=== PATIENT | female | born 1945 | race African-American/Black ===

== ENCOUNTER → 2017-04-08 | Outpatient (CLI) | payer MEDICARE, MEDICAID | LOC: MC.RAD 13:48 | DX: Z12.31 Encounter for screening mammogram for malignant neoplasm of breast (principal) ==

== ENCOUNTER 2017-12-25 15:45 | Inpatient (IN) | payer MEDICARE, MEDICAID ==
[~2017-12-25] VITALS: Ht 149.9 cm; Wt 90.3 kg
[~2017-12-25 15:45] MED LIST: HEPARIN SOD5000 U/ML SQ; PLAVIX 75MG TAB75 MG PO; ZESTRIL 5MG5 MG PO
[2017-12-25 16:03] VITALS: BP 128/58; PULSE 77; TEMP 98.2
[2017-12-25 23:37] VITALS: BP 173/89; PULSE 91
[2017-12-26 06:00] VITALS: BP 148/86; PULSE 72; TEMP 97.7
[2017-12-26 18:00] VITALS: BP 160/94; PULSE 77; TEMP 97.8
[2017-12-27 00:24] VITALS: BP 133/73; PULSE 81; TEMP 98.2
[2017-12-27 05:43] VITALS: BP 123/75; PULSE 72; TEMP 97.7
[2017-12-27 07:01] LABS: BASO # 0.1 (0.0-0.2); BASO % 0.7 % (0.0-2.0); EOS # 0.3 (0.0-0.7); GRAN # 3.4 (1.4-6.5); GRAN % 46.8 % (42.2-75.2); HEMOGLOBIN 12.1 g/dl (12.5-16.0); LYMPH # 2.8 (1.2-3.4); LYMPH % 38.2 % (20.0-51.0); MEAN CELL VOLUME 81 fl (80.0-100.0); MEAN CORPUSCULAR HEMOGLOBIN 26 pg (27.0-31.0); MEAN CORPUSCULAR HGB CONC 33 g/dl (33.0-37.0); MEAN PLATELET VOLUME 9.8 fl (7.4-10.4); MONO # 0.7 (0.1-0.6); PLATELET COUNT 242 K/mm3 (130-400); RED BLOOD COUNT 4.58 M/mm3 (4.10-5.30); REDCELL DISTRIBUTION WIDTH-CV 14.9 % (11.5-14.5)
[2017-12-27 07:09] LABS: HEMATOCRIT 36.9 % (37.0-47.0)
[2017-12-27 15:39] VITALS: BP 123/65; PULSE 80; TEMP 98.4
[2017-12-28 04:46] VITALS: BP 136/86; PULSE 74; TEMP 98.1
[2017-12-28 15:53] VITALS: BP 142/70; PULSE 75; TEMP 98.7
[2017-12-29 05:16] VITALS: BP 150/69; PULSE 74; TEMP 98.1
[2017-12-29 18:14] VITALS: BP 142/81; PULSE 88; TEMP 98.3
[2017-12-30 05:05] VITALS: BP 135/78; PULSE 74; TEMP 98.2
[2017-12-30 13:46] LABS: COLLECTION METHOD CLEAN CATCH
[2017-12-30 13:52] LABS: MUCOUS Present /lpf; PH 5 (5-8); URINE APPEARANCE Clear; URINE BACTERIA Rare /hpf; URINE BILIRUBIN Negative (NEGATIVE); URINE BLOOD Negative (NEGATIVE); URINE COLOR Yellow; URINE GLUCOSE Negative (NEGATIVE); URINE KETONE Negative (NEGATIVE); URINE LEUKOCYTE ESTERASE Negative (NEGATIVE); URINE NITRATE Negative (NEGATIVE); URINE PROTEIN(semi-quant) Negative (NEGATIVE); URINE RBC 0-2 /hpf; URINE UROBILINOGEN Negative (NEGATIVE)
[2017-12-30 15:18] VITALS: BP 140/82; PULSE 86; TEMP 97.9
[2017-12-31 06:26] VITALS: BP 152/89; PULSE 87; TEMP 97.8
[2017-12-31 16:17] VITALS: BP 149/80; PULSE 90; TEMP 98.1
[2018-01-01 06:05] VITALS: BP 125/77; PULSE 76; TEMP 98
[2018-01-01 16:12] VITALS: BP 144/82; PULSE 82; TEMP 98.4
[2018-01-02 05:11] VITALS: BP 140/77; PULSE 83; TEMP 98.5
[2018-01-02 15:44] VITALS: BP 145/63; PULSE 85; TEMP 98.3
[2018-01-03 04:23] VITALS: BP 134/88; PULSE 86; TEMP 98
[2018-01-03 15:32] VITALS: BP 155/53; PULSE 89; TEMP 97.8
[2018-01-04 05:50] VITALS: BP 133/76; PULSE 82; TEMP 98.1
[2018-01-04 15:49] VITALS: BP 148/81; PULSE 89; TEMP 97.9
[2018-01-05 06:04] VITALS: BP 136/77; PULSE 77; TEMP 98.4
[2018-01-05 15:16] VITALS: BP 130/87; PULSE 79; TEMP 98
[2018-01-06 04:40] VITALS: BP 129/71; PULSE 87; TEMP 98.4
[2018-01-06 15:43] VITALS: BP 148/84; PULSE 81; TEMP 97.7
[2018-01-07 05:17] VITALS: BP 100/60; PULSE 87; TEMP 97.4
[2018-01-07 18:09] VITALS: BP 147/75; PULSE 87; TEMP 97.9
[2018-01-08 06:00] VITALS: BP 131/81; PULSE 84; TEMP 97.7
[2018-01-08] MEDS ORDERED: NORVASC 5MG5 MG/TAB PO (07:28)
[2018-01-08] MEDS ORDERED: LIPITOR20 MG PO (07:28)
[2018-01-08] MEDS ORDERED: PLAVIX 75MG TAB75 MG PO (07:31)
== END 2018-01-08 11:05 | disposition home or self-care (01) | DRG 57 ==
PROVIDERS: Emergency Medicine
DX: I69.351 Hemiplegia and hemiparesis following cerebral infarction affecting right dominant side (principal); I69.321 Dysphasia following cerebral infarction; Z66 Do not resuscitate; I10 Essential (primary) hypertension; Z85.3 Personal history of malignant neoplasm of breast; B91 Sequelae of poliomyelitis
CPT/HCPCS: 99222-AI; 99232-AI; 99238; J1644

== ENCOUNTER 2020-12-22 00:13 | Inpatient (IN) | payer MEDICARE, MEDICAID ==
[2020-12-22] VITALS (180 sets, daily range): BP systolic 107–142; BP diastolic 63–99; PULSE 88–98; TEMP 97.5–98.6; O2SAT 93–100
[~2020-12-22] VITALS: Ht 149.9 cm; Wt 103.9 kg
[~2020-12-22 00:13] MED LIST changes: +LIPITOR20 MG PO; +NORVASC 5MG5 MG/TAB PO
[2020-12-22 02:02] LABS: BASO % 0.2 % (0.0-2.0); EOS # 0.1 (0.0-0.7); EOS % 0.7 % (0-4.0); GRAN # 11.7 (1.4-6.5); GRAN % 82.8 % (42.2-75.2); HEMATOCRIT 38.3 % (37.0-47.0); HEMOGLOBIN 12.5 g/dl (12.5-16.0); LYMPH # 1.1 (1.2-3.4); LYMPH % 7.6 % (20.0-51.0); MEAN CELL VOLUME 80 fl (80.0-100.0); MEAN CORPUSCULAR HEMOGLOBIN 26 pg (27.0-31.0); MEAN CORPUSCULAR HGB CONC 33 g/dl (33.0-37.0); MEAN PLATELET VOLUME 9.1 fl (7.4-10.4); MONO # 1.2 (0.1-0.6); MONO % 8.3 % (1.7-9.3); PLATELET COUNT 247 K/mm3 (130-400); RED BLOOD COUNT 4.79 M/mm3 (4.10-5.30); REDCELL DISTRIBUTION WIDTH-CV 15.9 % (11.5-14.5)
[2020-12-22 02:14] LABS: ALBUMIN 3.9 gm/dL (3.5-5.0); BILIRUBIN,TOTAL 0.3 mg/dL (0.0-1.0); CREATININE, serum 0.89 (0.52-1.25); POTASSIUM 3.6 mmol/L (3.4-5.0); TOTAL PROTEIN 7.5 gm/dL (6.4-8.2)
[2020-12-22 02:27] LABS: TROPONIN-I 0.104 ng/mL (0.000-0.035)
[2020-12-22 03:59] LABS: ARTERIAL BLD GAS O2 SATURATION 96.3 % (92-100); ARTERIAL BLOOD GAS BASE EXCESS -1.3 (-2-2); ARTERIAL BLOOD GAS HCO3 23.8 meq/L (22-26); ARTERIAL BLOOD GAS PCO2 41.1 mmHg (35-45); ARTERIAL BLOOD GAS PO2 96.3 mmHg (80-100); ARTERIAL BLOOD GAS pH 7.38 (7.35-7.45)
[2020-12-22] MEDS ORDERED: GLUCOPHAGE XR500 M1 PO (05:06)
[2020-12-22] MEDS ORDERED: COREG 3.123.125 MG/T PO (05:06)
[2020-12-22] MEDS ORDERED: PRINIVIL10 MG PO (05:07)
[2020-12-22] MEDS ORDERED: LASIX 20MG TABL20 MG PO (05:07)
[2020-12-22] MEDS ORDERED: COREG 6.256.25 MG/TA PO (05:08)
[2020-12-22 06:58] LABS: COLLECTION METHOD CATHETER
[2020-12-22 07:03] LABS: MUCOUS Present /lpf; PH 5 (5-8); SQUAMOUS EPITHELIAL None Seen /hpf; URINE APPEARANCE Clear; URINE BACTERIA Rare /hpf; URINE BILIRUBIN Negative (NEGATIVE); URINE BLOOD 1+ (NEGATIVE); URINE COLOR Straw; URINE GLUCOSE Negative (NEGATIVE); URINE KETONE Negative (NEGATIVE); URINE LEUKOCYTE ESTERASE Negative (NEGATIVE); URINE NITRATE Negative (NEGATIVE); URINE PROTEIN(semi-quant) 2+ (NEGATIVE); URINE UROBILINOGEN Negative (NEGATIVE)
[2020-12-22 07:09] LABS: INR 1.2 (0.8-3.0); PROTHROMBIN TIME 13.2 SECONDS (9.7-12.8)
[2020-12-22 07:15] LABS: MAGNESIUM 1.8 mg/dL (1.6-2.3); PHOSPHOROUS 4.3 mg/dL (2.5-4.5)
[2020-12-22 07:40] LABS: THYROID STIMULATING HORMONE 1.75 uIU/mL (0.465-4.680)
--- NOTE | 2020-12-22 12:02 | NUR ---
First visit from the local area network systems adminstrator. No needs right now.
--- NOTE | 2020-12-22 13:59 | NUR ---
Conference Reservationist met with patient to discuss discharge planning. Patient's friend, Tony is at bedside. Patient lives in [place], [place] with her sister, Capri. Patient states she has lived in [place] for about two years and is here in [place] cleaning out a storage unit. Patient is currently staying with her granddaughter, Nona (ph#[phone]) who lives here in [place]. Patient advised she sees Dr. Paige in [place] for primary care and obtains needed medications from [facility]. Patient has a walker, cane, shower chair, and grab bars installed at home. Patient reports she is mostly independent with ADLS but sometimes has difficulty after she had a stroke about three years ago. Patient states she especially can struggle with putting on her shoes. Patient does not have Advance Directives. Patient is not and has two children, Gareth (ph#[phone]) and Katharina. Gareth lives in [place] and Katharina lives in [place]. Patient does not normally wear oxygen but is currently requiring it. Patient states she plans to stay with her granddaughter a couple more weeks to gain her strength back before flying back to [place]. PT/OT ordered for patient. Discharge Plan: Home with granddaughter
--- NOTE | 2020-12-22 17:27 | NUR ---
PT ARRIVED TO FLOOR EATING DINNER, VERY PLEASANT, OCCASIONALLY HAVINGA HARD TIME FINDING SOME WORDS, AOX4, STEADY ON FEET, DENIES CHEST PAIN, FRESH ICE WATER BROUGHT IN
--- NOTE | 2020-12-22 17:31 | NUR ---
PT PLEASANT IN ROOM, UP TO CHAIR, TAYLOR DRAINING CLEAR YELLOW URINE, DENIES PAIN, WATER BROUGHT IN, PT EATING DINNER, VISITOR AT BEDSIDE, NO OTHER NEEDS
--- NOTE | 2020-12-22 23:35 | NUR ---
Patient assessed around 2100. Alert and oriented, and able to make needs known. Denies having pain and discomfort at this time. Peripheral INT to right hand. Denies SOB and dyspnea. LS CTA. On room air. Respirations even and unlabored. HRR. Telemetry in place. Capillary refill less than 3 seconds. Non-tenting skin turgor. BSAx4. Abdomen soft and non-tender. 1+ edema BLE. Indwelling berg catheter patent, and draining clear yellow urine via dependent drainage. Catheter care provided. Voices no questions, needs, or concerns at this time. Resting in bed with call light within reach.
[2020-12-23 04:29] VITALS: BP 116/65; PULSE 97; TEMP 97.9
--- NOTE | 2020-12-23 05:55 | NUR ---
Patient has been resting in bed with call light within reach. Has denied having pain and discomfort this shift. Has been on room air throughout this shift. Denies SOB and dyspnea.
[2020-12-23 06:58] LABS: BASO % 0.5 % (0.0-2.0); EOS # 0.1 (0.0-0.7); EOS % 1.9 % (0-4.0); HEMOGLOBIN 11.4 g/dl (12.5-16.0); LYMPH # 2.3 (1.2-3.4); LYMPH % 31.2 % (20.0-51.0); MEAN CELL VOLUME 80 fl (80.0-100.0); MEAN CORPUSCULAR HEMOGLOBIN 26 pg (27.0-31.0); MEAN CORPUSCULAR HGB CONC 33 g/dl (33.0-37.0); MEAN PLATELET VOLUME 10.2 fl (7.4-10.4); MONO # 0.8 (0.1-0.6); PLATELET COUNT 233 K/mm3 (130-400); RED BLOOD COUNT 4.33 M/mm3 (4.10-5.30); REDCELL DISTRIBUTION WIDTH-CV 15.9 % (11.5-14.5)
[2020-12-23 07:02] LABS: HEMATOCRIT 34.7 % (37.0-47.0)
[2020-12-23 07:26] LABS: CALCIUM 8.7 mg/dL (8.4-10.2); CREATININE, serum 0.75 (0.52-1.25); MAGNESIUM 1.9 mg/dL (1.6-2.3); POTASSIUM 3.7 mmol/L (3.4-5.0)
[2020-12-23 07:33] VITALS: BP 110/59; PULSE 100; TEMP 98.7
--- NOTE | 2020-12-23 10:15 | NUR ---
Pt assessment completed and charted, meds administered per. Pt A&O, on room air, berg in place draining clear yellow urine. Pt denies pain, dizziness, N/V/D, chest pain, abd pain. Pt does c/o SOA w/ ambulation. IV flushes w/o issues. No further needs expressed at this time. Call light within reach.
[2020-12-23] MEDS ORDERED: LASIX 40MG TABL40 MG PO (11:16)
[2020-12-23] MEDS ORDERED: PROVENTIL0.09 MG/A1 IH (11:27)
--- NOTE | 2020-12-23 12:03 | NUR ---
Stapleton removed, pericare provided before and after removal. 10ml saline removed from the balloon. Patient ambulated to the bathroom independently. No further needs expressed from the patient. Call light within reach
--- NOTE | 2020-12-23 12:06 | NUR ---
First visit from the film examiner. No needs right now.
[2020-12-23 12:21] VITALS: BP 121/84; PULSE 84; TEMP 98.3
--- NOTE | 2020-12-23 12:22 | NUR ---
Discharge paperwork reviewed with the patient. Patient verbalized an understanding to follow doctors orders. Patient waiting to eat lunch and for ride to come grape picker. No further needs expressed from the patient. Call light within reach
--- NOTE | 2020-12-23 14:13 | NUR ---
IV removed, tip intact, gauze and coban applied. Discharge paperwork and personal belongings with the patient. Patient taken by wheelchair to ER entrance. No further needs expressed from the patient.
== END 2020-12-23 14:14 | disposition home or self-care (01) | DRG 280 ==
LOC: COL.ER 00:13 → ICU 04:58 → MEDICAL 04:58 → ICU 12:19 → MEDICAL 14:13
PROVIDERS: Nurse Practitioner Family; Personal Emergency Response Attendant; ADMIT Internal Medicine
DX: I11.0 Hypertensive heart disease with heart failure (principal); J96.01 Acute respiratory failure with hypoxia; I21.4 Non-ST elevation (NSTEMI) myocardial infarction; I16.1 Hypertensive emergency; Z68.41 Body mass index [BMI] 40.0-44.9, adult; I50.43 Acute on chronic combined systolic (congestive) and diastolic (congestive) heart failure; E87.6 Hypokalemia; E78.5 Hyperlipidemia, unspecified; D72.829 Elevated white blood cell count, unspecified; E66.01 Morbid (severe) obesity due to excess calories; R53.81 Other malaise; I48.91 Unspecified atrial fibrillation; I45.81 Long QT syndrome; Z86.73 Personal history of transient ischemic attack (TIA), and cerebral infarction without residual deficits; Z85.3 Personal history of malignant neoplasm of breast
CPT/HCPCS: 99223-AI; 99239; A4314; J1650; J1940

== ENCOUNTER 2021-01-03 19:49 | Inpatient (IN) | payer BC, MEDICAID ==
[~2021-01-03] VITALS: Ht 149.9 cm; Wt 94.4 kg
[~2021-01-03 19:49] MED LIST changes: +COREG 3.123.125 MG/T PO; +COREG 6.256.25 MG/TA PO; +GLUCOPHAGE XR500 M1 PO; +LASIX 20MG TABL20 MG PO; +LASIX 40MG TABL40 MG PO; +PRINIVIL10 MG PO; +PROVENTIL0.09 MG/A1 IH
[2021-01-03 22:00] LABS: BASO % 0.4 % (0.0-2.0); EOS # 0.2 (0.0-0.7); EOS % 2.5 % (0-4.0); GRAN # 4.5 (1.4-6.5); GRAN % 59.7 % (42.2-75.2); HEMATOCRIT 38.1 % (37.0-47.0); HEMOGLOBIN 12.2 g/dl (12.5-16.0); LYMPH # 2.1 (1.2-3.4); LYMPH % 27.9 % (20.0-51.0); MEAN CELL VOLUME 82 fl (80.0-100.0); MEAN CORPUSCULAR HEMOGLOBIN 26 pg (27.0-31.0); MEAN CORPUSCULAR HGB CONC 32 g/dl (33.0-37.0); MEAN PLATELET VOLUME 10.3 fl (7.4-10.4); MONO # 0.7 (0.1-0.6); MONO % 9.2 % (1.7-9.3); PLATELET COUNT 217 K/mm3 (130-400); RED BLOOD COUNT 4.65 M/mm3 (4.10-5.30); REDCELL DISTRIBUTION WIDTH-CV 16.3 % (11.5-14.5)
[2021-01-03 22:54] LABS: TROPONIN-I 0.021 ng/mL (0.000-0.035)
[2021-01-03 22:58] LABS: ALBUMIN 4.1 gm/dL (3.5-5.0); BILIRUBIN,TOTAL 0.5 mg/dL (0.0-1.0); CALCIUM 9.2 mg/dL (8.4-10.2); CREATININE, serum 0.82 (0.52-1.25); POTASSIUM 4.3 mmol/L (3.4-5.0); TOTAL PROTEIN 7.6 gm/dL (6.4-8.2)
[2021-01-03 23:15] LABS: ARTERIAL BLD GAS O2 SATURATION 98.4 % (92-100); ARTERIAL BLD GAS TCO2 CT 25.7; ARTERIAL BLOOD GAS BASE EXCESS -0.6 (-2-2); ARTERIAL BLOOD GAS HCO3 24.4 meq/L (22-26); ARTERIAL BLOOD GAS PCO2 41.7 mmHg (35-45); ARTERIAL BLOOD GAS pH 7.39 (7.35-7.45)
[2021-01-03 23:16] LABS: ARTERIAL BLOOD GAS PO2 127.9 mmHg (80-100)
[2021-01-04] VITALS (512 sets, daily range): BP systolic 98–111; BP diastolic 59–66; PULSE 89–98; TEMP 98.4–100.9; O2SAT 94–100
[2021-01-04 06:41] LABS: ALBUMIN 4.1 gm/dL (3.5-5.0); BILIRUBIN,TOTAL 0.6 mg/dL (0.0-1.0); CALCIUM 9.1 mg/dL (8.4-10.2); CREATININE, serum 0.8 (0.52-1.25); POTASSIUM 3.8 mmol/L (3.4-5.0); TOTAL PROTEIN 7.8 gm/dL (6.4-8.2)
[2021-01-04 06:49] LABS: BASO % 0.1 % (0.0-2.0); EOS % 0.1 % (0-4.0); GRAN # 13.3 (1.4-6.5); GRAN % 88.2 % (42.2-75.2); HEMATOCRIT 43.1 % (37.0-47.0); HEMOGLOBIN 13.8 g/dl (12.5-16.0); LYMPH # 0.6 (1.2-3.4); LYMPH % 3.9 % (20.0-51.0); MEAN CELL VOLUME 81 fl (80.0-100.0); MEAN CORPUSCULAR HEMOGLOBIN 26 pg (27.0-31.0); MEAN CORPUSCULAR HGB CONC 32 g/dl (33.0-37.0); MEAN PLATELET VOLUME 9.4 fl (7.4-10.4); MONO # 1.1 (0.1-0.6); MONO % 7.4 % (1.7-9.3); PLATELET COUNT 242 K/mm3 (130-400); REDCELL DISTRIBUTION WIDTH-CV 15.9 % (11.5-14.5)
--- NOTE | 2021-01-04 07:00 | NUR ---
Patient arrived to ICU 2 at 0546. Assessment complete and charted. Patient on ventilator. Verbal orders received from Soheila LEYVA to start fentanyl gtt and place berg. Spoke with granddaughter Allison and update given. Admission assessment reviewed along with medication rec with Allison. Denies any questions at this time.
[2021-01-04 07:07] LABS: TROPONIN-I 6 HR POST INITIAL 0.053 ng/mL (0.000-0.034)
[2021-01-04] MEDS ORDERED: COREG 3.123.125 MG/T PO (07:11)
--- NOTE | 2021-01-04 07:46 | NUR ---
Report given to GISSEL Kirkpatrick
[2021-01-04 08:21] LABS: ARTERIAL BLD GAS O2 SATURATION 99.2 % (92-100); ARTERIAL BLD GAS TCO2 CT 24.5; ARTERIAL BLOOD GAS BASE EXCESS -1.4 (-2-2); ARTERIAL BLOOD GAS HCO3 23.3 meq/L (22-26); ARTERIAL BLOOD GAS PCO2 39.3 mmHg (35-45); ARTERIAL BLOOD GAS pH 7.39 (7.35-7.45)
[2021-01-04 08:22] LABS: ARTERIAL BLOOD GAS PO2 182.5 mmHg (80-100)
--- NOTE | 2021-01-04 10:36 | NUR ---
SW was called by granddaughter and intake was done at that time due to patient currently being on vent. Grand-daughter Allison [phone] states that patient is currently staying with her, but resides in [place]. Allison provides that patient came up from [place] late November to visit her friend and became ill during her visit. Allison states that patient does utilize a walker that she has currently in her vehicle if needed. Documenation states that PCP for patient is Dr. Hutchison. Allison provides that she is unsure of what pharmacy is being utilized while patient is here and she is unsure if patient has taken her medication appropriately, and that the plan of care after hospital stay is patient will stay with her. SW will continue to follow. SW will continue to follow. Plan: Home with grand sheeba Cooper
--- NOTE | 2021-01-04 11:10 | NUR ---
SW attended rounds with phyician and golf player assistant. Goals of care consult placed in. SW assisted in contacting palliative care nurse to assist with conversation. SW will continue to follow.
--- NOTE | 2021-01-04 12:50 | NUR ---
SAYRA called grand daughter Allison to obtain contact information for her. Allison provided for staff to call her direct number [phone]. The number listed on file is the patient's cell phone number. Allison provided that patient's daughter Gareth lives in [place] at [address] [place] [id number] and her phone number is [phone]. SAYRA will continue to follow and assist with conversation with primary point of contact of family when established in regards to patient's clinical care.
--- NOTE | 2021-01-04 13:54 | NUR ---
tipple worker spoke with patient's daughter, Gareth #[phone] and confirmed that she and her sister, Katharina #[phone] are patient's legal next of kin. Worker can not locate a durable power of construction pit worker for health care and the family members do not believe patient completed a directive. Gareth gives associates permission to talk with her daughter, Nona #[phone] regarding patient's care. This worker and Jeronimo, palliative care nurse, spoke with Gareth and Katharina on a three way call and both verbalized wishes that patient should be a DNR. Gareth states that patient verbalized that she wanted to be a DNR two days ago. Worker met with patient's nurse the request and advised of the request for patient to be a DNR. Worker provided written information on patient's legal next of kin. Worker and Jeronimo also met with Nona and offered emotional support and advised of the change to DNR status.
--- NOTE | 2021-01-04 14:00 | NUR ---
Emmie Antoine DUST HANDLER and I spoke with pt's daughters Danielle by phone. Neither of them is aware of any advanced directives being completed and Emmie has explained to them that by [place] law they would together be the next of kin and decision makers for Alma. They both report that they are trying to get back here to [place] to be with their mother and both would be available by phone. They also gave us permission to talk with granddaughter Nona Mayorga and keep her advised also of Alma's condition. After talking with both Gareth and Katharina about code status, they are both requesting that she be made a DNR. This request was relayed to nurse Kaya by Brandon. Nona, granddaughter, was present in pt's room and was advised of this. She is feeling very emotional but also requests that we keep her advised of Alma's condition. Support provided.
--- NOTE | 2021-01-04 14:33 | NUR ---
I recieved a call from daughter, Katharina, after she had spoken with Nona and several family members. She is requesting that we keep her mother, Alma, a full code until the sisters can arrive to discuss this further. I notified Angela LEYVA and Emmie Antoine [facility] of this phone call and request. Emmie will call Gareth to advise her of this request from her sister.
--- NOTE | 2021-01-04 15:01 | NUR ---
Katharina called Heatherk and rescinds her support for patient being a DNR and requestes that patient be a full code. conversion worker notified patient's daughter, Gareth, of the above information and advised that this is an ethical concern and that Dr Villegas will be notified and asked to assist with decision on code status. Worker completed an Ethics consult in the Ethics Tracker, and collaborated with Naheed Scott, Ethics Co Chair and director of ICU, Pia. Worker spoke with patient's nurse, Kaya, and advised of the above information.
--- NOTE | 2021-01-04 19:11 | NUR ---
Shift report given to GISSEL Kim.
--- NOTE | 2021-01-04 20:00 | NUR ---
Assessment complete and charted. Remains sedated. Tolerating well.
[2021-01-04 20:28] LABS: MAGNESIUM 1.8 mg/dL (1.6-2.3); POTASSIUM 3.4 mmol/L (3.4-5.0)
[2021-01-05] VITALS (543 sets, daily range): BP systolic 111–125; BP diastolic 63–79; PULSE 85–111; TEMP 97.8–99.7; O2SAT 77–98
[2021-01-05 04:29] LABS: BASO % 0.2 % (0.0-2.0); GRAN # 12.8 (1.4-6.5); GRAN % 77.6 % (42.2-75.2); HEMOGLOBIN 12.3 g/dl (12.5-16.0); LYMPH # 2.2 (1.2-3.4); LYMPH % 13.1 % (20.0-51.0); MEAN CELL VOLUME 80 fl (80.0-100.0); MEAN CORPUSCULAR HEMOGLOBIN 27 pg (27.0-31.0); MEAN CORPUSCULAR HGB CONC 34 g/dl (33.0-37.0); MEAN PLATELET VOLUME 9.9 fl (7.4-10.4); MONO # 1.5 (0.1-0.6); MONO % 8.8 % (1.7-9.3); PLATELET COUNT 251 K/mm3 (130-400); RED BLOOD COUNT 4.56 M/mm3 (4.10-5.30)
[2021-01-05 04:34] LABS: HEMATOCRIT 36.6 % (37.0-47.0)
[2021-01-05 04:40] LABS: ALBUMIN 3.7 gm/dL (3.5-5.0); CALCIUM 9.1 mg/dL (8.4-10.2); POTASSIUM 3.1 mmol/L (3.4-5.0); TOTAL PROTEIN 7.2 gm/dL (6.4-8.2)
[2021-01-05 05:53] LABS: ARTERIAL BLD GAS O2 SATURATION 97.1 % (92-100); ARTERIAL BLD GAS TCO2 CT 26.8; ARTERIAL BLOOD GAS BASE EXCESS 3.7 (-2-2); ARTERIAL BLOOD GAS HCO3 25.9 meq/L (22-26); ARTERIAL BLOOD GAS PCO2 31.6 mmHg (35-45); ARTERIAL BLOOD GAS PO2 88.2 mmHg (80-100); ARTERIAL BLOOD GAS pH 7.53 (7.35-7.45)
--- NOTE | 2021-01-05 07:22 | NUR ---
Report given to GISSEL Kirkpatrick
--- NOTE | 2021-01-05 10:30 | NUR ---
PT EXTUBATED PER DR. RENEE TO 4 LPM OXYMASK. PT RESTING QUIETLY IN BED W/O COMPLAINT.
--- NOTE | 2021-01-05 10:30 | NUR ---
Per Dr. Enriquez PT is to be extubated. RT, RN and RT student bedside. PT is alert and oriented. PT 2SW restraints removed. Tube is successfully removed at 1030. Pt is placed on 4L oxymask. SPO2 maintaining at 95%. Rest of vitals unremarkable.
--- NOTE | 2021-01-05 11:18 | NUR ---
SW met with patient about code status. Patient wishes to be full code. When prompted about DPOA patient wants more time to talk about it. WIll check in again later.
--- NOTE | 2021-01-05 13:44 | NUR ---
Patient insurance calls and advises that for all post hospital care, patient has [employer] with the phone # [phone].
[2021-01-05 18:54] LABS: COLLECTION METHOD CATHETER
--- NOTE | 2021-01-05 18:54 | NUR ---
Patient not interested in a CLD at this time. Did request sips of water. Noted coughing after sips had been taken. UA obtained and sent to lab. Call light in place. No other needs at this time
[2021-01-05 19:18] LABS: MUCOUS Present /lpf; PH 5 (5-8); SQUAMOUS EPITHELIAL None Seen /hpf; URINE APPEARANCE Clear; URINE BACTERIA None Seen /hpf; URINE BILIRUBIN Negative (NEGATIVE); URINE BLOOD 3+ (NEGATIVE); URINE COLOR Straw; URINE GLUCOSE Negative (NEGATIVE); URINE KETONE Negative (NEGATIVE); URINE LEUKOCYTE ESTERASE Negative (NEGATIVE); URINE NITRATE Negative (NEGATIVE); URINE PROTEIN(semi-quant) Negative (NEGATIVE); URINE RBC 20-50 /hpf; URINE UROBILINOGEN Negative (NEGATIVE); URINE WBC 0-2 /hpf
--- NOTE | 2021-01-05 20:00 | NUR ---
Assessment complete. Pt is AXO X3, denies having any pain at this time. She is resting quietly in the bed watching TV at this time and she denies further needs. Call light within reach.
[2021-01-06] VITALS (279 sets, daily range): BP systolic 101–125; BP diastolic 49–82; PULSE 70–97; TEMP 97.6–98.9; O2SAT 88–96
--- NOTE | 2021-01-06 05:30 | NUR ---
Report called to GISSEL Ruvlacaba, on the medical floor.
[2021-01-06 05:56] LABS: BASO % 0.3 % (0.0-2.0); EOS # 0.1 (0.0-0.7); EOS % 0.7 % (0-4.0); GRAN # 9.5 (1.4-6.5); GRAN % 75.5 % (42.2-75.2); HEMOGLOBIN 11.4 g/dl (12.5-16.0); LYMPH # 1.9 (1.2-3.4); LYMPH % 15.2 % (20.0-51.0); MEAN CELL VOLUME 81 fl (80.0-100.0); MEAN CORPUSCULAR HEMOGLOBIN 27 pg (27.0-31.0); MEAN CORPUSCULAR HGB CONC 33 g/dl (33.0-37.0); MEAN PLATELET VOLUME 9.9 fl (7.4-10.4); MONO % 7.9 % (1.7-9.3); PLATELET COUNT 221 K/mm3 (130-400); RED BLOOD COUNT 4.31 M/mm3 (4.10-5.30); REDCELL DISTRIBUTION WIDTH-CV 15.9 % (11.5-14.5)
[2021-01-06 05:59] LABS: HEMATOCRIT 35.1 % (37.0-47.0)
--- NOTE | 2021-01-06 06:00 | NUR ---
Pt transferred to medical room 315 via bed with this nurse and COMPUTER NUMERIC CONTROL SETTER'ita Ruvalcaba RN, at bedside.
--- NOTE | 2021-01-06 06:00 | NUR ---
PATIENT ADMITED INTO ROOM 315 FROM ICU. PATIENT CAME INTO ER WITH SOA & WEAKNESS X1 WEEK AND CHF EXACERBATION. NOTED ELEVATED BNP. PATIENT ASPIRATED WHILE ON BI-PAP AND WAS INTUBATED AND EXTUBATED YESTERDAY. 02 @ 2L PER OXYMASK WITH SATS IN MID 90'S. NOTED MILD DYSPNEA AT REST. HEAD TO TOE ASSESSMENT COMPLETE, SEE SHIFT ASSESSMENT. A&O. VSS. NO C/O PAIN OR N/V. CLEAR LIQUID DIET. LIQUIDS AT BEDSIDE. ORIENTED TO ROOM. CALL LIGHT IN REACH.
[2021-01-06 06:07] LABS: CALCIUM 9.1 mg/dL (8.4-10.2); CREATININE, serum 1.08 (0.52-1.25); POTASSIUM 3.3 mmol/L (3.4-5.0)
--- NOTE | 2021-01-06 10:19 | NUR ---
I met with patient and her daughter Gareth in her room today. Pt speaks clearly and reports that she is feeling better but still short of breath. She describes the onset of this episode that brought her to the hospital as being provoked by her walking to the bathroom and then she couldn't breathe. Gareth reports that she has lasix at home but has not liked taking it--even when she was in [place]. As we were talking I talked about her wishes for code status and her reply was "Just let me go!" I then brought up a DPOA-HC, discussed what it was and that the person(s) that she could appoint would only be allowed to make decisions for her when she herself was not able to speak for herself. Pt shook her head yes that she was interested. I spoke with emmie Antoine and with Fide, neonatal social worker about this and per Emmie's request, Fide will follow up. Also addressed with supervisor mixing that Gareth is not a designated visitor but is in the room.
--- NOTE | 2021-01-06 10:21 | NUR ---
PT SOB WITH LAYING FLAT AND WHILE ON NC EATING JELLO. OXYMASK PLACED ON PT ONCE FINISHED EATING. PT DENIES PAIN OTHER THAN THROAT DISCOMFORT FROM EXTUBATION. PT ASSESSMENT PERFORMED, MEDICATIONS GIVEN, PT TOOK PILLS IN WATER NO OTHER NEEDS.
--- NOTE | 2021-01-06 12:09 | NUR ---
Mattie, palliative care nurse, notified SAYRA that the patient is interested in completing a DPOA-HC now. SAYRA met with the patient alone to discuss the above and asked the patient what a DPOA-HC is. The patient verbalized that a DPOA-HC allows someone to make decisions for her when she cannot. The patient reports that she would want her granddaughter, Allison, to make decisions for her and she would like to complete the DPOA-HC while here. The patient verbalized that she did not want to name an alternate. SAYRA and Lore DE PAZ, witnessed the patient's signature. SAYRA provided the patient with the original and some copies. SAYRA placed a copy in the patient's chart. SAYRA attempted to contact the patient's granddaughter, Allison, to update about the DPOA-HC. SAYRA left her a voicemail. The patient informed SAYRA that she was unsure at this time what she would want her code status to be.
--- NOTE | 2021-01-06 14:21 | NUR ---
ENTERED PT ROOM, PT HAVING INC WOB, SATTING 79% ON RA. PLACED PT ON 4L AND O2 INC TO 97%. WEANNED DOWN TO 2L. NOTIFIED NONA OF SITUATION.
--- NOTE | 2021-01-06 18:28 | NUR ---
PT ON 1.5L OXYMASK, PT PLEASANT, AOX4, DENIES PAIN OTHER THAN DISCOMFORT FROM EXTUBATION, PT STATED WANTING TO BE DNR, DAUGHTER IN ROOM SEEMED AGAINST THIS, ALSO VOICED THAT PT DAUGHTER WANTED PT TO COME LIVE WITH HER. TAYLOR DRAINING CLEAR YELLOW URINE, NO OTHER NEEDS
--- NOTE | 2021-01-06 19:08 | NUR ---
Received report from [facility]. Patient awake in bed. Denies needs at this time.
--- NOTE | 2021-01-06 20:40 | NUR ---
Patient on O2 at 1 1/2L oxymask. On IFC draining clear, yellow urine. She do have productive cough. Provided her with the specimen container and informed her that we need sample of her sputum. PICC on upper arm flushes well with backflow.
[2021-01-07 04:03] VITALS: BP 118/58; PULSE 92; TEMP 98
--- NOTE | 2021-01-07 05:59 | NUR ---
Patient had been coughing continously this morning. She states her throat is dry. Called Kandy KHOURY for order of Nikita. She is still on O2 1 1/2 oxymask.
[2021-01-07 06:58] LABS: HEMOGLOBIN 10.7 g/dl (12.5-16.0); MEAN CELL VOLUME 83 fl (80.0-100.0); MEAN CORPUSCULAR HEMOGLOBIN 27 pg (27.0-31.0); MEAN CORPUSCULAR HGB CONC 32 g/dl (33.0-37.0); MEAN PLATELET VOLUME 10.1 fl (7.4-10.4); PLATELET COUNT 233 K/mm3 (130-400); RED BLOOD COUNT 4.02 M/mm3 (4.10-5.30); REDCELL DISTRIBUTION WIDTH-CV 15.7 % (11.5-14.5)
[2021-01-07 07:03] LABS: HEMATOCRIT 33.3 % (37.0-47.0)
[2021-01-07 07:11] LABS: CALCIUM 8.8 mg/dL (8.4-10.2); CREATININE, serum 1.21 (0.52-1.25); POTASSIUM 3.5 mmol/L (3.4-5.0)
[2021-01-07 08:00] VITALS: BP 122/80; PULSE 95; TEMP 97.9
--- NOTE | 2021-01-07 08:50 | NUR ---
PT PLEASANT, AOX4, DENIES PAIN, DENIES NEED FOR COUGH MEDICINE, EDUCATED TO LET US KNOW WHEN SHE WANTS IT, POTASSIUM REPLACED IN ORANGE JUICE, PILLS TAKEN WITH WATER, LOVENOX GIVEN,
[2021-01-07 11:41] VITALS: BP 107/62; PULSE 90; TEMP 98.1
[2021-01-07 16:00] VITALS: BP 120/65; PULSE 89; TEMP 98.6
--- NOTE | 2021-01-07 17:09 | NUR ---
PT PLEASANT, AOX4, DENIES SOB AND REPORTS FEELING "A LOT BETTER". TAYLOR DRAINGING CLEAR YELLOW URINE, PT ON OXYMASK, PT NOT EATING MUCH DUE TO "THESE PEOPLE DONT KNOW HOW TO COOK". DENIES PAIN/N/V/D. HAD BM EARLIER IN DAY, PT INDEPENDENT IN THE BED REPOSITIONING NEEDED, CALL LIGHT WITHIN REACH, CENTRAL LINE CDI W/O ERYTHEMA, PT ACCIDENTALLY PULLED ON LAC INT EARLIER IN SHIFT. NO OTHER NEEDS AT THIS TIME.
--- NOTE | 2021-01-07 19:30 | NUR ---
Received report from [facility]. Patient awake in bed. She denies pain. Reports she is still coughing but refuse Robitussin for now. Stapleton catheter draining clear, yellow urine. On O2 at 2lpm via oxymask. PICC on right upper arm flushes well.
[2021-01-07 21:01] VITALS: BP 113/66; PULSE 92; TEMP 98.9
[2021-01-08] VITALS (7 sets, daily range): BP systolic 103–117; BP diastolic 55–70; PULSE 81–91; TEMP 97.7–99
[2021-01-08 06:58] LABS: BASO % 0.4 % (0.0-2.0); EOS # 0.3 (0.0-0.7); EOS % 2.5 % (0-4.0); GRAN # 6.4 (1.4-6.5); GRAN % 63.9 % (42.2-75.2); HEMOGLOBIN 10.8 g/dl (12.5-16.0); LYMPH # 2.1 (1.2-3.4); MEAN CELL VOLUME 83 fl (80.0-100.0); MEAN CORPUSCULAR HEMOGLOBIN 26 pg (27.0-31.0); MEAN CORPUSCULAR HGB CONC 32 g/dl (33.0-37.0); MEAN PLATELET VOLUME 10.3 fl (7.4-10.4); MONO # 1.2 (0.1-0.6); MONO % 11.7 % (1.7-9.3); PLATELET COUNT 257 K/mm3 (130-400); RED BLOOD COUNT 4.11 M/mm3 (4.10-5.30); REDCELL DISTRIBUTION WIDTH-CV 15.4 % (11.5-14.5)
--- NOTE | 2021-01-08 07:02 | NUR ---
Patient still on O2 at 2lpm via oxymask. She is still coughing. Robitussin given as needed. She denies pain.
[2021-01-08 07:07] LABS: HEMATOCRIT 34.2 % (37.0-47.0)
[2021-01-08 07:10] LABS: CREATININE, serum 1.04 (0.52-1.25); POTASSIUM 3.7 mmol/L (3.4-5.0)
--- NOTE | 2021-01-08 09:27 | NUR ---
Scheduld medication givne. Shift assessment preformed. Patient currently requiring 1L of O2 via nasal cannula. VSS. Dr. Gonzalez notified that patient's BP was 103/56. Verbal orders recieved for a one time reduction of Coreg dose, 3.125 PO once. Lisinopril held per Carlos. Patient denies any pain, discomfort, or futher needs at this time. Will continue to monitor. Call light in reach.
--- NOTE | 2021-01-08 12:29 | NUR ---
PRN Robutussin given. Patient's daughter updated on status. Scheduled medications given. VSS. Patient denies any further needs at this time. Will continue to monitor. Call light in reach.
--- NOTE | 2021-01-08 15:37 | NUR ---
Patient experiencing dry cough. Dr. Gonzalez notified Lorenzo Key ordered and administered.
--- NOTE | 2021-01-08 16:38 | NUR ---
Patient has had an ok day. Patient is Alert but not fully orientated. Family at the bedside.
--- NOTE | 2021-01-08 18:00 | NUR ---
Patient has had an ok day. Patient states that tessolon pearls have helped relieve dry cough. Patient currenltly requiring 2L of O2 via nasal cannula. Patient denies any pain, discomfort, or futher needs at this time. Will continue to monitor. Call light in reach.
[2021-01-09 03:51] VITALS: BP 110/64; PULSE 80; TEMP 99
[2021-01-09 07:21] LABS: BASO # 0.1 (0.0-0.2); BASO % 0.5 % (0.0-2.0); EOS # 0.4 (0.0-0.7); EOS % 3.8 % (0-4.0); GRAN # 5.8 (1.4-6.5); GRAN % 59.7 % (42.2-75.2); HEMATOCRIT 34.9 % (37.0-47.0); HEMOGLOBIN 10.9 g/dl (12.5-16.0); LYMPH # 2.3 (1.2-3.4); LYMPH % 23.6 % (20.0-51.0); MEAN CELL VOLUME 83 fl (80.0-100.0); MEAN CORPUSCULAR HEMOGLOBIN 26 pg (27.0-31.0); MEAN CORPUSCULAR HGB CONC 31 g/dl (33.0-37.0); MEAN PLATELET VOLUME 10.1 fl (7.4-10.4); MONO # 1.2 (0.1-0.6); MONO % 11.8 % (1.7-9.3); PLATELET COUNT 244 K/mm3 (130-400); RED BLOOD COUNT 4.23 M/mm3 (4.10-5.30); REDCELL DISTRIBUTION WIDTH-CV 15.3 % (11.5-14.5)
[2021-01-09 07:31] LABS: CALCIUM 9.1 mg/dL (8.4-10.2); CREATININE, serum 1.08 (0.52-1.25); POTASSIUM 3.9 mmol/L (3.4-5.0)
[2021-01-09 08:43] VITALS: BP 123/70; PULSE 86; TEMP 98.6
--- NOTE | 2021-01-09 10:03 | NUR ---
I met with pt this am to discuss her plan of discharge. She reports to me that she is going to stay with her friend Tatiana--"who is a good person". I asked her if it was her plan to move in with Allison and she said "no--it would require her to move and put a lot of stress on her--not to mention the paperwork". She again states that she and Tatiana have been friends for a lifetime and that she had been furnishing her own room there. She states she will not go to a shelter. Reviewed the importance of her taking her medications as instructed and she agreed. This was communicated with EDUARDO Elizalde.
--- NOTE | 2021-01-09 11:04 | NUR ---
PT/OT is recommending post-acute rehab. SAYRA met with the patient to discuss post-acute rehab and informed of IPR. The patient's insurance is [employer] [place] and she may not have SNF benefits. The patient reports that she has been to our [facility] in the past and would prefer to go there again. SW inquired about having Medicare. The patient reports that she does. SAYRA notified admissions. The patient provided SW with her granddaughter/DPOA-HC's, Allison's, correct phone number: [phone]. SAYRA contacted and updated Allison on the above. Allison is in agreement to post-acute rehab. Allison reports that the patient does not have Medicare now. She states that the patient had Medicare in [place], but has not signed up for Medicare here. She reports that she needs to work on that. She confirms that the patient only has the [employer]. SAYRA notified and consulted [facility] Director, Amanda. Awaiting screen.
[2021-01-09 11:05] VITALS: BP 130/58; PULSE 80; TEMP 98.1
[2021-01-09 16:05] VITALS: BP 99/48; PULSE 85; TEMP 98.2
--- NOTE | 2021-01-09 16:31 | NUR ---
Amanda, [facility] Director, reports that the patient is a standby assist to mod I and that she will have to decline, due to the patient being too functional. SAYRA met with the patient and her daughter, Gareth, to update. SW discussed going home with home health vs SNF and the possibility of having out of pocket costs at a SNF, if the patient does not have benefits. The patient and her daughter verbalized understanding. The patient reports that she would be staying with her friend and that her friend works from [phone]. Gareth reports that her and her daughter/the patient's DPOA-HC, Allison, will be going to [facility] tomorrow to see about getting her on a [place] Medicare plan. The patient reports that she would be open to seeing if [facility] or [facility] can accept her and if she would have any out of pocket costs. SAYRA contacted and faxed referral to [facility] and [facility]. Awaiting screens.
--- NOTE | 2021-01-09 19:22 | NUR ---
Pt has done well today, resting in bed, family at bedside most of the day. Denies needs, report given to nightshift nurse who will resume care.
[2021-01-09 20:44] VITALS: BP 103/52; PULSE 89; TEMP 98.2
--- NOTE | 2021-01-09 20:45 | NUR ---
Initial shift assessment done- denies pain, had some jello as a HS snack tonight, Stapleton with clear shaneka urine, PICC tp GAYE, o2 at 1L/nc, denies any chest pain or SOB-hopes to go home tomorrow.
[2021-01-09 23:51] VITALS: BP 116/65; PULSE 52; TEMP 98.4
[2021-01-10 03:35] VITALS: BP 112/83; PULSE 90; TEMP 98.1
--- NOTE | 2021-01-10 05:19 | NUR ---
Quiet night, VSS, did receive cough medicine x1 during the night for a cough-resting on and off throughout the shift. Stapleton with 525cc urine output this shift
[2021-01-10 07:32] LABS: BASO % 0.3 % (0.0-2.0); EOS # 0.4 (0.0-0.7); EOS % 3.5 % (0-4.0); GRAN # 6.3 (1.4-6.5); GRAN % 62.2 % (42.2-75.2); HEMOGLOBIN 10.8 g/dl (12.5-16.0); LYMPH # 2.3 (1.2-3.4); LYMPH % 23.1 % (20.0-51.0); MEAN CELL VOLUME 82 fl (80.0-100.0); MEAN CORPUSCULAR HEMOGLOBIN 26 pg (27.0-31.0); MEAN CORPUSCULAR HGB CONC 32 g/dl (33.0-37.0); MEAN PLATELET VOLUME 10.4 fl (7.4-10.4); MONO % 10.3 % (1.7-9.3); PLATELET COUNT 259 K/mm3 (130-400); RED BLOOD COUNT 4.13 M/mm3 (4.10-5.30); REDCELL DISTRIBUTION WIDTH-CV 15.1 % (11.5-14.5)
[2021-01-10 07:48] LABS: CALCIUM 9.1 mg/dL (8.4-10.2); CREATININE, serum 1.05 (0.52-1.25); POTASSIUM 3.7 mmol/L (3.4-5.0)
[2021-01-10 08:00] VITALS: BP 121/63; PULSE 64; TEMP 98.5
--- NOTE | 2021-01-10 09:11 | NUR ---
PT PLEASANT AOX4, DENIES PAIN, COFFEE BROUGHT IN WITH MEDICATIONS PER PT REQUEST, POTASSIUM MIXED IN GRAPE JUICE, MEDICATIONS GIVEN AFTER ASSESSING VITAL SIGNS, PT ASSESSMENT PERFORMED, CALL LIGHT WITHIN REACH, PT REQUESTING SHOWER FOR LATER IN THE DAY, PT ON RA SATTING 91%, NO OTHER NEEDS
[2021-01-10] MEDS ORDERED: COREG 6.256.25 MG/TA PO (09:17)
[2021-01-10 12:11] VITALS: BP 102/60; PULSE 82; TEMP 98
--- NOTE | 2021-01-10 15:10 | NUR ---
The patient's daughter, Gareth, contacted SAYRA. Gareth reports that they went to the social security office today and was able to get the patient's [place] Medicare switched to Medicare [employer], but that it will probably not be active until 01/22. She reports that the patient's [place] Medicare is still active and the adult protective caseworker through the insurance, informed her that it would pay for things. She provided SAYRA with the information: [facility] ID#[id number]. SAYRA notified [facility] with admissions. SAYRA notified [facility] and [facility]. Courtney, at [facility], reports that they were able to get in contact with the correct insurance plan and they do require auth. Courtney reports that they are starting the auth process now, but do not know how long it will take. SAYRA updated the patient's daughter, Gareth. SAYRA also discussed going home with home health, if the patient's insurance elsy. Gareth verbalized understanding and was agreeable with the patient going home with home health, if insurance elsy or does not get back to [facility]. She reports that they are getting the patient's room ready today, in case she is denied. Awaiting insurance auth.
[2021-01-10 17:22] VITALS: BP 108/61; PULSE 92; TEMP 98.2
--- NOTE | 2021-01-10 17:34 | NUR ---
PT WORRIED ABOUT DISCHARGE THINKING SHE WILL HAVE TO BE IN A HOME FOREVER, DENIES PAIN, REPORTS R ARM CRAMPING EARLIER IN THE DAY THAT HAS SINCE RESOLVED ON ITS OWN, PT AOX4, LITTLE APPETITE, NO OTHER NEEDS
--- NOTE | 2021-01-10 20:30 | NUR ---
Initial shift assessment done- denies pain, denies need for a snack, on RA- denies any SOB, was given some cough medicine for occasional cough- Stapleton with clear shaneka urine-- hoping something can be figured out tomorrow so she can go to a SNF rehab to get stronger
[2021-01-10 21:15] VITALS: BP 106/58; PULSE 90; TEMP 98.6
[2021-01-11 00:49] VITALS: BP 118/66; PULSE 92; TEMP 98
[2021-01-11 04:09] VITALS: BP 112/61; PULSE 88; TEMP 98.2
--- NOTE | 2021-01-11 05:28 | NUR ---
Quiet night-VSS, did have a coughing episode x1 and Tessalon was given as ordered. no other requests.
[2021-01-11 08:05] VITALS: BP 125/84; PULSE 90; TEMP 97.7
[2021-01-11 13:07] VITALS: BP 121/70; PULSE 82; TEMP 97.9
--- NOTE | 2021-01-11 16:30 | NUR ---
Patient discharging home, I discussed discharge orders with the patient and her daughter, instructed to follow up with PCP and Cardiology as we have scheduled, instructed to wear LifeVest as previously instructed untill further arrangements set-up by cardiology for ICD placement, telemetry removed, PICC removed from AIVS, instructed on Coreg dosing change, leaving with family, COATING LINE WORKER escorted out by wheelchair
--- NOTE | 2021-01-11 16:36 | NUR ---
Fariba, with [facility], contacted SAYRA. Fariba reports that the patient's insurance is [id number] for the state of [place] and that it will not cover any SNF in [place]. She reports that they would approve home health and she provided SW with the phone number for the home health agency to call to get auth: [phone]. SAYRA contacted and updated the patient's DPOA-HC/granddaughter, Allison, on the above and how the patient is ready to d/c today. Allison reports that she will need to contact SAYRA back. SAYRA then received a phone call from the patient's daughter, Gareth. SAYRA updated Gareth. Gareth reports that she would like to discuss home health when she gets here. SAYRA met with the patient and updated her on the above. The patient reports that she is ready to get home and would be agreeable to home health and [facility]. SAYRA contacted and faxed a referral to Celi at [facility] and provided her with the auth number. The patient's daughter, Gareth, then arrived to the hospital. Gareth reports that they are ready to go and is agreement to home health. She states that their ride is here and cannot wait long. The patient's RN updated the PA. Gareth reports that the plan is for the patient to come and stay with her upon discharge. SAYRA informed her that [facility] may not have auth yet by the time she leaves. Gareth verbalized understanding and reports that they are okay with that. The patient's PCP was Dr. Hutchison, but he has retired. She does not have a new PCP. Ivet Gonzalez Clerk secured the patient an appointment with IRAIDA Parker with Dr. Camejo at [facility] on Saturday, 01/16, at 1100. SAYRA updated the patient and Gareth. SAYRA contacted and updated Celi at [facility]. Celi reports that they are able to accept the patient, but will not be able to see her until her appointment with Elena on Saturday. Celi reports that she will reach out to the patient's daughter, Gareth, to schedule a time to go see the patient. The patient discharged to her daughter's home today, 01/11, with home health services for residential/PT/OT from [facility]. SAYRA notified and faxed d/c orders to Celi at [facility]. No additional needs at this time.
== END 2021-01-11 17:31 | disposition home or self-care (01) | DRG 291 ==
LOC: COL.ER 19:49 → MEDICAL 01-04 04:28 → ICU 01-04 04:28 → MEDICAL 01-05 17:45
PROVIDERS: Emergency Medicine Emergency Medical Services; Internal Medicine Pulmonary Disease; Physician Assistant; Student in an Organized Health Care Education/Training Program; ADMIT Internal Medicine
PROC: 5A1935Z Respiratory Ventilation, Less than 24 Consecutive Hours (ICD-10-PCS; principal; 2021-01-04)
PROC: 0BH17EZ Insertion of Endotracheal Airway into Trachea, Via Natural or Artificial Opening (ICD-10-PCS; 2021-01-04)
PROC: 02HV33Z Insertion of Infusion Device into Superior Vena Cava, Percutaneous Approach (ICD-10-PCS; 2021-01-04)
DX: I11.0 Hypertensive heart disease with heart failure (principal); J96.01 Acute respiratory failure with hypoxia; E87.3 Alkalosis; I16.1 Hypertensive emergency; E87.6 Hypokalemia; E78.5 Hyperlipidemia, unspecified; R00.1 Bradycardia, unspecified; I50.43 Acute on chronic combined systolic (congestive) and diastolic (congestive) heart failure; E11.9 Type 2 diabetes mellitus without complications; E66.01 Morbid (severe) obesity due to excess calories; Z20.822 Contact with and (suspected) exposure to COVID-19; I95.9 Hypotension, unspecified; E87.70 Fluid overload, unspecified; R53.81 Other malaise; Z79.84 Long term (current) use of oral hypoglycemic drugs; Z85.3 Personal history of malignant neoplasm of breast; Z86.73 Personal history of transient ischemic attack (TIA), and cerebral infarction without residual deficits
CPT/HCPCS: 99232-AI; 99233-AI; A4314; C1751; C1892; J1650; J1940; J2060; J2250; J2405; J2543; J2704; J3010; J3480; J7050; Q9967

== ENCOUNTER 2021-02-10 09:47 | Day surgery (SDC) | payer MEDICARE, MEDICAID ==
[2021-02-10] VITALS (10 sets, daily range): BP systolic 91–110; BP diastolic 42–92; PULSE 78–89; TEMP 98
[~2021-02-10] VITALS: Ht 149.9 cm; Wt 99.5 kg
[2021-02-10] MEDS ORDERED: COREG 6.256.25 MG/TA PO (10:06)
[2021-02-10] MEDS ORDERED: PROVENTIL0.09 MG/A1 IH (10:07)
[2021-02-10] MEDS ORDERED: LASIX 40MG TABL40 MG PO (10:08)
[2021-02-10] MEDS ORDERED: ZESTRIL 10MG10 MG PO (10:09)
[2021-02-10] MEDS ORDERED: ENTRESTO 24 MG1 EACH PO (10:09)
[2021-02-10] MEDS ORDERED: FORTAMET500 M1 PO (10:10)
[2021-02-10] MEDS ORDERED: PLAVIX 75MG TAB75 MG PO (10:10)
[2021-02-10] MEDS ORDERED: LIPITOR20 MG PO (10:11)
[2021-02-10 10:33] LABS: MEAN CELL VOLUME 79 fl (80.0-100.0); MEAN CORPUSCULAR HEMOGLOBIN 26 pg (27.0-31.0); MEAN CORPUSCULAR HGB CONC 34 g/dl (33.0-37.0); MEAN PLATELET VOLUME 10.2 fl (7.4-10.4); PLATELET COUNT 313 K/mm3 (130-400); RED BLOOD COUNT 4.54 M/mm3 (4.10-5.30); REDCELL DISTRIBUTION WIDTH-CV 15.4 % (11.5-14.5)
[2021-02-10 10:38] LABS: HEMATOCRIT 35.7 % (37.0-47.0)
[2021-02-10 11:30] LABS: CALCIUM 9.2 mg/dL (8.4-10.2); CREATININE, serum 0.8 (0.52-1.25); POTASSIUM 3.4 mmol/L (3.4-5.0)
[2021-02-10 11:38] LABS: PARTIAL THROMBOPLASTIN TIME 31.7 SECONDS (26.0-37.0)
[2021-02-10 11:44] LABS: INR 1.2 (0.8-3.0); PROTHROMBIN TIME 13.8 SECONDS (9.7-12.8)
--- NOTE | 2021-02-10 12:38 | NUR ---
PT back to express after LHC, rt radial access. Pt assisted to br by Becky CHAUHAN as pt did receive IV lasix. pt is amb with assist x 1-2. Pt settled in bed, telemetry initiated, she is alert and oriented and updated on poc. TR band in place to rt wrist, cms intact distal. call light in reach
--- NOTE | 2021-02-10 17:05 | NUR ---
Pt did well during her recovery, She was ambulatory to in rm 14 for several unmeasured voids, gait has been steady with assist x1, and pt has been able to get herself into bed. vitals have been stable throughout. TR band has been deflated with no problem, and site dressed with bandaid, folded 2x2 and coban. cms remains intact distal, and site is soft. I reviewed dc and fu instructions with pt and her grandaughter. Both verbalized understanding. IV was dc'd with cath intact, dressing applied. pt was transported to exit via wheelchair.
== END 2021-02-10 17:45 | disposition home or self-care (01) ==
LOC: COL.CAR 09:47
PROVIDERS: Internal Medicine Cardiovascular Disease
DX: I50.22 Chronic systolic (congestive) heart failure (principal); I25.10 Atherosclerotic heart disease of native coronary artery without angina pectoris; I11.0 Hypertensive heart disease with heart failure; I63.9 Cerebral infarction, unspecified; E78.5 Hyperlipidemia, unspecified; Z79.899 Other long term (current) drug therapy; Z79.84 Long term (current) use of oral hypoglycemic drugs; Z20.822 Contact with and (suspected) exposure to COVID-19; Z79.02 Long term (current) use of antithrombotics/antiplatelets
CPT/HCPCS: J1200; J1644; J1940; J2250; J2930; J3010; J7030

== ENCOUNTER 2021-03-28 12:02 | Day surgery (SDC) | payer MEDICARE, MEDICAID ==
[2021-03-28] VITALS (7 sets, daily range): BP systolic 119–138; BP diastolic 65–82; PULSE 94–103; TEMP 97.5–98
[~2021-03-28] VITALS: Ht 149.9 cm; Wt 98.9 kg
[~2021-03-28 12:02] MED LIST changes: +ENTRESTO 24 MG1 EACH PO; +FORTAMET500 M1 PO; +ZESTRIL 10MG10 MG PO
[2021-03-28 12:50] LABS: HEMOGLOBIN 12.1 g/dl (12.5-16.0); MEAN CELL VOLUME 80 fl (80.0-100.0); MEAN CORPUSCULAR HEMOGLOBIN 27 pg (27.0-31.0); MEAN CORPUSCULAR HGB CONC 33 g/dl (33.0-37.0); MEAN PLATELET VOLUME 9.6 fl (7.4-10.4); PLATELET COUNT 272 K/mm3 (130-400); RED BLOOD COUNT 4.55 M/mm3 (4.10-5.30); REDCELL DISTRIBUTION WIDTH-CV 15.9 % (11.5-14.5)
[2021-03-28 12:52] LABS: HEMATOCRIT 36.5 % (37.0-47.0)
[2021-03-28 13:00] LABS: INR 1.3 (0.8-3.0); PROTHROMBIN TIME 14.2 SECONDS (9.7-12.8)
[2021-03-28 13:03] LABS: CALCIUM 9.5 mg/dL (8.4-10.2); CREATININE, serum 0.83 mg/dL (0.57-1.11); POTASSIUM 3.4 mmol/L (3.5-4.5)
--- NOTE | 2021-03-28 15:26 | NUR ---
SEE MERGE FOR ALL MEDICATION ADMINISTRATION TIMES, INTRA AND POST SEDATION ASSESSMENTS
--- NOTE | 2021-03-28 16:45 | NUR ---
Patient arrived about this time from fish farm laborer, alert/oriented, vital signs stable, pain controlled, incision dressign C/D/I, left arm immobilizer sling in place, ICE pack applied, denies needs, will cotninue to monitor
--- NOTE | 2021-03-28 20:28 | NUR ---
Called and spoke with Dr. Boyd at this time. Ok to resume home medications.
--- NOTE | 2021-03-28 20:52 | NUR ---
Patient assessed. Stated that APAP was effective, and denies pain. Peripheral INT to right hand. Sling to left arm. Dressing to left chest CDI. Telemetry inplace. Voices no questions, needs, or concerns at this time. Resting in bed with call light within reach.
[2021-03-29 00:41] VITALS: BP 117/58; PULSE 88; TEMP 98
[2021-03-29 03:48] VITALS: BP 117/65; PULSE 89; TEMP 97.7
--- NOTE | 2021-03-29 06:01 | NUR ---
Patient has been resting in bed with call light within reach. Has denied pain and discomfort this shift. Dressing to left chest CDI. Sling to left arm.
--- NOTE | 2021-03-29 07:00 | NUR ---
Report received from GISSEL Tariq. pt in bed resting, denies needs, will continue usama onitor.
[2021-03-29 07:55] VITALS: BP 115/57; PULSE 88; TEMP 98
--- NOTE | 2021-03-29 09:24 | NUR ---
Initial visit; Patient thanked Deputy Director Of Public Works for stopping and offering prayer of hope and wishing her well and offering God's blessings.
--- NOTE | 2021-03-29 09:46 | NUR ---
Assessment charted. Changed dressing to L chest pacemaker site per IRAIDA Cheung with [facility] to gauze and tegaderm. Pt reports pain is 8/10 to left chest, PRN tylenol provided but refusing ice. Plan for DC today this afternoon when ride avaialble. Denies other needs, INT to RH. Will ocntinue to monitor.
--- NOTE | 2021-03-29 10:27 | NUR ---
farmworker fur met with patient to discuss discharge plan. Patient currently lives at home with her granddaughter Allison ([phone]). PCP is Dr. Laura Camejo and utilizes [facility] for perscriptions with no cost difficulty. Patient reports to being fully independent with activities of daily living and utilizes a cane and a walker to assist with mobility. Reports she just got done with [facility] and is questioning if she will need it post procedure. farmworker fur suggests to address HH needs with PCP and i will reach out to the office director social service. Patient "thinks" she has a DPOA-HC established and that her agent would be her granddaughter who has the form. Patient is planning on returning home post dc with no concerns. Discharge plan: Home with granddaughter.
[2021-03-29] MEDS ORDERED: CEPHALEXIN500 M1 PO (10:41)
[2021-03-29 11:13] VITALS: BP 121/61; PULSE 76; TEMP 97.8
--- NOTE | 2021-03-29 13:36 | NUR ---
Pt dishcarged at this time, INT dc'd tip intact. Pt packet reviewed, telemetry removed. Pt leaving with all belongings, escorted out by medical staff, family to drive home, criteria met.
== END 2021-03-29 13:38 | disposition home or self-care (01) ==
LOC: COL.CAR 12:02 → MEDICAL 16:17 → COL.CAR 03-29 13:38
PROVIDERS: Internal Medicine Interventional Cardiology
DX: Z45.02 Encounter for adjustment and management of automatic implantable cardiac defibrillator (principal); I11.0 Hypertensive heart disease with heart failure; I50.20 Unspecified systolic (congestive) heart failure; I25.10 Atherosclerotic heart disease of native coronary artery without angina pectoris; E78.5 Hyperlipidemia, unspecified; I63.9 Cerebral infarction, unspecified; Z79.84 Long term (current) use of oral hypoglycemic drugs; Z20.822 Contact with and (suspected) exposure to COVID-19; Z79.899 Other long term (current) drug therapy; Z79.02 Long term (current) use of antithrombotics/antiplatelets
CPT/HCPCS: OP; C1722; C1777; C1894; J0690; J2250; J3010; J7030

== ENCOUNTER 2021-08-18 19:28 | Inpatient (IN) | payer MEDICARE, MEDICAID ==
[2021-08-18] VITALS (15 sets, daily range): O2SAT 85–100
[~2021-08-18] VITALS: Ht 160 cm; Wt 101.3 kg
[~2021-08-18 19:28] MED LIST changes: +CEPHALEXIN500 M1 PO
[2021-08-18 19:46] LABS: HEMATOCRIT 45.1 % (37.0-47.0); HEMOGLOBIN 14.1 g/dl (12.5-16.0); MEAN CELL VOLUME 83 fl (80.0-100.0); MEAN CORPUSCULAR HEMOGLOBIN 26 pg (27-31); MEAN CORPUSCULAR HGB CONC 31 g/dl (33.0-37.0); MEAN PLATELET VOLUME 9.7 fl (7.4-10.4); PLATELET COUNT 271 K/mm3 (130-400); RED BLOOD COUNT 5.44 M/mm3 (4.10-5.30); REDCELL DISTRIBUTION WIDTH-CV 15.8 % (11.5-14.5)
[2021-08-18 20:05] LABS: ALBUMIN 4.1 gm/dL (3.4-4.8); BILIRUBIN,TOTAL 0.5 mg/dL (0.2-1.2); CREATININE, serum 1.1 mg/dL (0.57-1.11); MAGNESIUM 2.2 mg/dL (1.6-2.6); TOTAL PROTEIN 8.4 gm/dL (6.2-8.1)
[2021-08-18 20:14] LABS: ANISOCYTOSIS 1+; LYMPHOCYTE 49 % (20.0-51.0); NEUTROPHILS 48 % (42.0-75.2); PLATELET ESTIMATE NORMAL (NORMAL)
[2021-08-18 20:19] LABS: POTASSIUM 3.5 mmol/L (3.5-4.5)
[2021-08-18 20:36] LABS: TROPONIN-I 0.02 ng/mL (0.00-0.033)
[2021-08-18 21:43] LABS: ARTERIAL BLD GAS O2 SATURATION 97.1 % (92-100); ARTERIAL BLD GAS TCO2 CT 23.7; ARTERIAL BLOOD GAS BASE EXCESS -4.9 (-2-2); ARTERIAL BLOOD GAS HCO3 22.2 meq/L (22-26); ARTERIAL BLOOD GAS PCO2 49.2 mmHg (35-45); ARTERIAL BLOOD GAS PO2 103.7 mmHg (80-100); ARTERIAL BLOOD GAS pH 7.27 (7.35-7.45)
--- NOTE | 2021-08-18 22:00 | NUR ---
PT RECEIVED FROM ER VIA STRETCHER WITH RN AND RT. PT CURRENTLY ON BIPAP AT 90% FIO2. TOLERATING WELL. CHANGED INTO HOSPITAL GOWN, CONNECTED TO ICU MONITORING. PT DENIES PAIN, REQUESTING SOME WATER. ASSESSMENT COMPLETED, WILL FOLLOW WITH POC AND MEDICATIONS ORDERED.
[2021-08-18 22:17] LABS: INR 1.1 (0.8-3.0); PROTHROMBIN TIME 12.7 SECONDS (9.7-12.8)
[2021-08-18 22:38] LABS: COLLECTION METHOD CATHETER
[2021-08-18 22:45] LABS: MUCOUS Present (NOT PRESENT); PH 5 (5-8); SQUAMOUS EPITHELIAL 0-2 /hpf (0-10); URINE APPEARANCE Clear (CLEAR/HAZY); URINE BACTERIA None Seen /hpf (NONE SEEN); URINE BILIRUBIN Negative (NEGATIVE); URINE BLOOD 1+ (NEGATIVE); URINE COLOR Straw (YELLOW); URINE GLUCOSE Negative (NEGATIVE); URINE KETONE Negative (NEGATIVE); URINE LEUKOCYTE ESTERASE Negative (NEGATIVE); URINE NITRATE Negative (NEGATIVE); URINE PROTEIN(semi-quant) 1+ (NEGATIVE); URINE RBC 0-2 /hpf (0-2); URINE UROBILINOGEN Negative (NEGATIVE)
[2021-08-18 23:23] LABS: C-REACTIVE PROTEIN 0.59 mg/dL (0.00-0.50); PHOSPHOROUS 4.8 mg/dL (2.3-4.7)
[2021-08-18 23:43] LABS: THYROID STIMULATING HORMONE 6.467 uIU/mL (0.350-4.940)
[2021-08-18 23:48] LABS: TROPONIN-I 0.539 ng/mL (0.00-0.033)
[2021-08-19] VITALS (322 sets, daily range): BP systolic 122–163; BP diastolic 72–112; PULSE 76–104; TEMP 97.5–98.4; O2SAT 76–100
[2021-08-19 03:21] LABS: HEMATOCRIT 40.1 % (37.0-47.0); HEMOGLOBIN 13.3 g/dl (12.5-16.0); MEAN CELL VOLUME 79 fl (80.0-100.0); MEAN CORPUSCULAR HEMOGLOBIN 26 pg (27-31); MEAN CORPUSCULAR HGB CONC 33 g/dl (33.0-37.0); MEAN PLATELET VOLUME 9.2 fl (7.4-10.4); PLATELET COUNT 192 K/mm3 (130-400); RED BLOOD COUNT 5.09 M/mm3 (4.10-5.30); REDCELL DISTRIBUTION WIDTH-CV 15.2 % (11.5-14.5)
[2021-08-19 03:39] LABS: CALCIUM 8.7 mg/dL (8.4-10.2); CHOLESTEROL RISK RATIO 3.8; CREATININE, serum 0.96 mg/dL (0.57-1.11); POTASSIUM 4.5 mmol/L (3.5-4.5)
[2021-08-19 03:42] LABS: BAND 15 % (0-10); MICROCYTOSIS 1+; NEUTROPHILS 79 % (42.0-75.2); PLATELET ESTIMATE NORMAL (NORMAL)
[2021-08-19 03:43] LABS: ANISOCYTOSIS 1+
[2021-08-19 03:47] LABS: TROPONIN-I 0.831 ng/mL (0.00-0.033)
--- NOTE | 2021-08-19 04:30 | NUR ---
PT REQUESTING BREAK FROM BIPAP. RODRI WYMAN SAYS OK TO TRY NC FOR A BIT AFTER MORNING ABG DRAWN AND IF PH IS NORMAL.
[2021-08-19 04:43] LABS: ARTERIAL BLD GAS TCO2 CT 25.1; ARTERIAL BLOOD GAS BASE EXCESS -0.8 (-2-2); ARTERIAL BLOOD GAS HCO3 23.9 meq/L (22-26); ARTERIAL BLOOD GAS PCO2 39.6 mmHg (35-45); ARTERIAL BLOOD GAS PO2 106.3 mmHg (80-100)
--- NOTE | 2021-08-19 06:00 | NUR ---
PT ON 8L NC WITH PULSE OXIMETRY READING 98%. BLOOD GAS DRAWN THIS AM WITH PH AND PCO2 WNL. PT REQUESTING TO EAT, HOWEVER CURRENT ORDER NPO UNTIL MD ROUNDS THIS AM PER RODRI WYMAN. PT AWARE.
--- NOTE | 2021-08-19 08:00 | NUR ---
Resumed care of pt. VSS. All lines, GTTs, tubes, checked and verified. PT is on High flow NC and a Nitro GTT.
--- NOTE | 2021-08-19 16:20 | NUR ---
SW completed intake with patient's DPOA/HC Nona Mayorga [phone]. DPOA states that patient is currenly living in [facility] with her niece and nephew. Patient does utilize a walker and has no outside services currently assisting her in the home. PCP Dr. Evans, and pharmacy is [facility]. DC plan is for patient to return to nephews home, but DPOA stated that she may return to her home if needed. SW will continue to follow. DC plan: home
--- NOTE | 2021-08-19 21:01 | NUR ---
PT SITTING UP IN BED. PM ASSESSMENT COMPLETE. PT DENIES PAIN, REPORTS NO CONCERNS. STATES BREATHING IS MUCH EASIER THAN DAY BEFORE. TAYLOR CATHETER WITH CLEAR YELLOW URINE, PT DIURESING WELL. VSS, WILL CONTINUE TO MONITOR.
[2021-08-20] VITALS (214 sets, daily range): BP systolic 96–199; BP diastolic 54–80; PULSE 77–92; TEMP 97.5–98.5; O2SAT 80–99
[2021-08-20 06:08] LABS: BASO % 0.1 % (0.0-2.0); GRAN # 14.3 K/mm3 (1.4-6.5); GRAN % 89.7 % (42.2-75.2); HEMOGLOBIN 12.5 g/dl (12.5-16.0); LYMPH # 0.8 K/mm3 (1.2-3.4); LYMPH % 5.1 % (20.0-51.0); MEAN CELL VOLUME 78 fl (80.0-100.0); MEAN CORPUSCULAR HEMOGLOBIN 27 pg (27-31); MEAN CORPUSCULAR HGB CONC 34 g/dl (33.0-37.0); MEAN PLATELET VOLUME 10.5 fl (7.4-10.4); MONO # 0.8 K/mm3 (0.1-0.6); MONO % 4.7 % (1.7-9.3); PLATELET COUNT 181 K/mm3 (130-400); RED BLOOD COUNT 4.72 M/mm3 (4.10-5.30); REDCELL DISTRIBUTION WIDTH-CV 15.2 % (11.5-14.5)
[2021-08-20 06:09] LABS: HEMATOCRIT 36.7 % (37.0-47.0)
[2021-08-20 06:19] LABS: CALCIUM 8.7 mg/dL (8.4-10.2); CREATININE, serum 1.1 mg/dL (0.57-1.11)
--- NOTE | 2021-08-20 15:20 | NUR ---
PT was transfered upstairs to medical room 305 via wheelchair without issue. PT was placed in medical room, call light in reach and transfered to [facility] RN at bedside. All belongings were transfered with PT including phone, clothes, recovery coach, and RT medications.
--- NOTE | 2021-08-20 17:37 | NUR ---
PT SITTING UP IN BED EATING DINNER. PT STATES SHE IS NOT HAVING ANY PAIN. PT STATES SHE CAN GET UP WITH A WALKER AND WALK TO THE BATHRROM HER SELF. GOT PT WALKER FOR ROOM. PT STATES NO OTHER NEEDS AT THIS TIME. PT ON 2 LIT VIA NC. CALL LIGHT IS WITHIN REACH.
--- NOTE | 2021-08-20 18:40 | NUR ---
PT SITTING AT EDGE OF BED TALKING ON PHONE. PT STATES THAT SHE IS DONE WITH HER DINNER. TRAY WAS REMOVED. PT STATES "IS THIS WIRE SUPPOSED TO GO SOMEWHERE?" PTS IV WAS INTACT ON END OF IV TUBING. PT NOT BLEEDING. TIP WAS INTACT. PT STATES "I WAS TRYING TO MOVE BACK IN BED AND IT CAME OFF" PT STATES NO PAIN. PT STATES NO OTHER NEEDS. PT CALL LIGHT IS WITHIN REACH.
[2021-08-21] VITALS (7 sets, daily range): BP systolic 113–145; BP diastolic 61–85; PULSE 71–86; TEMP 97.5–98.5
[2021-08-21 06:53] LABS: BASO % 0.1 % (0.0-2.0); GRAN # 13.1 K/mm3 (1.4-6.5); GRAN % 87.8 % (42.2-75.2); HEMATOCRIT 38.1 % (37.0-47.0); HEMOGLOBIN 12.8 g/dl (12.5-16.0); LYMPH # 0.8 K/mm3 (1.2-3.4); LYMPH % 5.6 % (20.0-51.0); MEAN CELL VOLUME 77 fl (80.0-100.0); MEAN CORPUSCULAR HEMOGLOBIN 26 pg (27-31); MEAN CORPUSCULAR HGB CONC 34 g/dl (33.0-37.0); MEAN PLATELET VOLUME 10.2 fl (7.4-10.4); MONO # 0.9 K/mm3 (0.1-0.6); MONO % 5.8 % (1.7-9.3); PLATELET COUNT 229 K/mm3 (130-400); RED BLOOD COUNT 4.93 M/mm3 (4.10-5.30); REDCELL DISTRIBUTION WIDTH-CV 15.1 % (11.5-14.5)
[2021-08-21 06:57] LABS: CALCIUM 8.9 mg/dL (8.4-10.2); CREATININE, serum 1.21 mg/dL (0.57-1.11); POTASSIUM 3.7 mmol/L (3.5-4.5)
--- NOTE | 2021-08-21 06:58 | NUR ---
pt on 1L O2 per NC, new INT placed last evening in RT wrist for antibiotics. berg patent/secure, pt requested to have removed, explained would need to ask doctor in the am. BGMs <200, no SS required.
--- NOTE | 2021-08-21 08:20 | NUR ---
PT SITTING UP IN CHAIR ON ROOM AIR. PT STATES THAT SHE WOULD LIKE TO TAKE A SHOWER LATER TODAY. TAYLOR AT BEDSIDE DRAINING YELLOW URINE. PT STATES NO NEEEDS AT THIS TIME. PT STATES NO PAIN. CALL LIGHT IS WITHIN REACH.
--- NOTE | 2021-08-21 09:14 | NUR ---
PT is recommending home with family and home health. SW contacted the patient to review discharge plan and address PT's recommendation. The patient states that she is looking for a place of her own, but has been rotating staying with family in the meantime. The patient states that she was staying with her granddaughter/DPOA-HC, Nona, before being admitted to the hospital. She plans to return home with family upon discharge. The patient confirms that she had home health from [facility] in the past. She states that she would need to talk to her family first, before pursing with home health again or not. She states that SAYRA can talk to Nona about this. SW attempted to contact Nona. SW left her a voicemail. *Discharge plan: home with family and tentatively home health*
--- NOTE | 2021-08-21 09:31 | NUR ---
The patient's granddaughter, Nona, returned SAYRA's phone call. She states that she will probably have the patient return back to her home upon discharge. She is open to getting home health set back up again from [facility]. SAYRA attempted to contact Celi at [facility]. SAYRA left her a voicemail and faxed over the referral. Awaiting screen.
--- NOTE | 2021-08-21 10:36 | NUR ---
Celi, at [facility], reports that they are able to accept the patient for services.
--- NOTE | 2021-08-21 12:19 | NUR ---
TAYLOR DC PER ORDER. 1300 ML OF YELLOW URINE EMPTIED OUT.
[2021-08-22 03:22] VITALS: BP 121/74; PULSE 79; TEMP 98.3
--- NOTE | 2021-08-22 06:06 | NUR ---
pt maintaining sats on RA, up ad melany in room with walker, pt refused stool softeners and laxatives at HS, stated she had been having bowel movements all day. no SS insulin required this shift.
--- NOTE | 2021-08-22 08:00 | NUR ---
PT SITTING UP IN CHAIR ON ROOM AIR. PT STATES THAT SHE IS READY TO GO HOME BUT WILL NOT BE ABLE TO UNTIL HER DAUGHTER GETS OFF WORK AFTER 2 THIS EVENING. PT STATES THAT SHE WOULD LIKE SOME COFFEE. COFFEE WAS GIVEN TO PT. PT STATES NO PAIN AT THIS TIME. CALL LIGHT IS WITHIN REACH.
[2021-08-22 08:28] VITALS: BP 119/66; PULSE 83; TEMP 97.5
[2021-08-22] MEDS ORDERED: DECADRON6 MG PO (09:09)
--- NOTE | 2021-08-22 11:09 | NUR ---
The patient is to discharge back home with her family today, 08/22, and home health services for nursing home/PT/OT from [facility]. SAYRA notified and faxed orders to Celi at [facility]. SAYRA contacted the patient and read the IM form outloud to her over the phone. The patient verbalized understanding and gave SW approval to sign the form on her behalf. The patient is agreeable to home health and states that her other granddaughter will be picking her up today. SAYRA attempted to contact and update her granddaughter, Nona. SW left her a voicemail. No additional needs at this time.
[2021-08-22 11:45] VITALS: BP 125/72; PULSE 70; TEMP 97.7
--- NOTE | 2021-08-22 16:56 | NUR ---
HEART MONITOR REMOVED AND IV DISCONTINUED VIA PT. PT STATES "I HAD TO GO TO THE BATHROOM AND I AM GOING HOME ANYWAYS SO I JUST TOOK EVERYTHING OUT"
== END 2021-08-22 16:55 | disposition home health service (06) | DRG 177 ==
LOC: COL.ER 19:28 → ICU 20:53 → MEDICAL 20:53
PROVIDERS: Emergency Medicine; Internal Medicine; Nurse Practitioner Family; ADMIT Student in an Organized Health Care Education/Training Program
PROC: 5A09457 Assistance with Respiratory Ventilation, 24-96 Consecutive Hours, Continuous Positive Airway Pressure (ICD-10-PCS; principal; 2021-08-18)
PROC: 3E0DX3Z Introduction of Anti-inflammatory into Mouth and Pharynx, External Approach (ICD-10-PCS; 2021-08-18)
PROC: XW033E5 Introduction of Remdesivir Anti-infective into Peripheral Vein, Percutaneous Approach, New Technology Group 5 (ICD-10-PCS; 2021-08-18)
DX: U07.1 COVID-19 (principal); J96.01 Acute respiratory failure with hypoxia; I50.43 Acute on chronic combined systolic (congestive) and diastolic (congestive) heart failure; J96.02 Acute respiratory failure with hypercapnia; I69.954 Hemiplegia and hemiparesis following unspecified cerebrovascular disease affecting left non-dominant side; I16.1 Hypertensive emergency; E87.2 Acidosis; R65.10 Systemic inflammatory response syndrome (SIRS) of non-infectious origin without acute organ dysfunction; I42.8 Other cardiomyopathies; I11.0 Hypertensive heart disease with heart failure; I34.0 Nonrheumatic mitral (valve) insufficiency; I25.10 Atherosclerotic heart disease of native coronary artery without angina pectoris; G14 Postpolio syndrome; I25.2 Old myocardial infarction; E87.6 Hypokalemia; E66.01 Morbid (severe) obesity due to excess calories; Z68.35 Body mass index [BMI] 35.0-35.9, adult; E11.9 Type 2 diabetes mellitus without complications; E78.5 Hyperlipidemia, unspecified; R53.81 Other malaise; Z79.84 Long term (current) use of oral hypoglycemic drugs; Z95.810 Presence of automatic (implantable) cardiac defibrillator; Z85.3 Personal history of malignant neoplasm of breast; Z92.3 Personal history of irradiation
CPT/HCPCS: 99223-AI; 99232-AI; 99233-AI; 99239; J0248; J0692; J0696; J1100; J1650; J1940; J2930; J3480; J7050; J8540

== ENCOUNTER 2023-10-27 10:49 | Inpatient (IN) | payer MEDICARE, MEDICAID ==
[~2023-10-27] VITALS: Ht 149.9 cm; Wt 88.8 kg
[2023-10-27] VITALS (454 sets, daily range): BP systolic 104–137; BP diastolic 62–86; PULSE 79–90; TEMP 98.6–99.2; O2SAT 93–99
[~2023-10-27 10:49] MED LIST changes: +ALDACTONE 25MG25 M1 PO; +DECADRON6 MG PO; +ENTRESTO 49 MG1 EACH PO; +GERI-TUSSI100 MG/5 M PO; +JARDIANCE10 PO; +MUCUS RELIEF400 M1 PO; +PROAIR HFA0.09 MG/AC IH; +TESSALON P100 MG/CAP PO; +TOPROL XL 25MG25 MG PO; +ZOFRAN ODT4 MG PO
[2023-10-27] MEDS ORDERED: NS 1,000 ML IV ONE (11:00)
[2023-10-27 11:10] LABS: BASO % 0.4 % (0.0-2.0); EOS % 0.4 % (0.0-4.0); GRAN # 7.3 K/mm3 (1.4-6.5); GRAN % 67.8 % (42.2-75.2); HEMOGLOBIN 13.5 g/dl (12.5-16.0); LYMPH # 2.1 K/mm3 (1.2-3.4); LYMPH % 19.2 % (20.0-51.0); MEAN CELL VOLUME 83 fl (80.0-100.0); MEAN CORPUSCULAR HEMOGLOBIN 28 pg (27-31); MEAN CORPUSCULAR HGB CONC 34 g/dl (33.0-37.0); MEAN PLATELET VOLUME 9.7 fl (7.4-10.4); MONO # 1.3 K/mm3 (0.1-0.6); MONO % 11.7 % (1.7-9.3); PLATELET COUNT 197 K/mm3 (130-400); REDCELL DISTRIBUTION WIDTH-CV 14.2 % (11.5-14.5)
[2023-10-27 11:14] LABS: INR 1.2 (0.8-3.0); PROTHROMBIN TIME 12.5 SECONDS (9.7-12.8)
[2023-10-27] MEDS ORDERED: Amiodarone 450 MG in D5W Excel 250 ML IV SCH ×4 (11:27→19:05)
[2023-10-27 11:38] LABS: ALBUMIN 3.7 g/dL (3.4-4.8); BILIRUBIN,TOTAL 0.7 mg/dL (0.2-1.2); C-REACTIVE PROTEIN 7.05 mg/dL (0.00-0.50); CALCIUM 10.1 mg/dL (8.4-10.2); CREATININE, serum 2.11 mg/dL (0.57-1.11); MAGNESIUM 2.1 mg/dL (1.6-2.6); TOTAL PROTEIN 7.7 g/dl (6.2-8.1)
[2023-10-27] MEDS ORDERED: ALBUTEROL1.25 MG/3 IH (11:43)
[2023-10-27] MEDS ORDERED: ALDACTONE 25MG25 M1 PO (11:44)
[2023-10-27] MEDS ORDERED: CALCIUM ANTACI500 MG PO (11:45)
[2023-10-27] MEDS ORDERED: ENTRESTO 49 MG1 EACH PO (11:47)
[2023-10-27 11:49] LABS: TROPONIN-I 0.068 ng/mL (0.00-0.033)
[2023-10-27] MEDS ORDERED: LOPRESSOR 225 MG/TAB PO (11:49)
[2023-10-27] MEDS ORDERED: NYSTATIN100000 U/1 TOP (11:50)
[2023-10-27] MEDS ORDERED: TESSALON P100 MG/CAP PO (11:52)
[2023-10-27] MEDS ORDERED: VOLTAREN GEL 1%1 TU TP (11:53)
[2023-10-27] MEDS ORDERED: 1/2 NS 1,000 ML IV SCH (13:00)
[2023-10-27] MEDS ORDERED: Acetaminophen 500 MG TAB PO PRN (13:00)
[2023-10-27] MEDS ORDERED: Ondansetron 4 MG/2 ML VIAL IV PRN (13:00)
[2023-10-27] MEDS ORDERED: Empagliflozin 10 MG TAB PO SCH (13:41)
[2023-10-27] MEDS ORDERED: Clopidogrel 75 MG TAB PO SCH (13:41)
[2023-10-27] MEDS ORDERED: Heparin 5,000 UNITS/ML 1 ML VIAL SQ SCH (14:00)
--- NOTE | 2023-10-27 19:35 | NUR ---
PATIENT LAYING IN BED, ALERT AND CALM. IV TO LEFT AC. NO ACUTE EVENTS.
[2023-10-27] MEDS ORDERED: Atorvastatin 20 MG TAB PO SCH (21:00)
[2023-10-28] VITALS (601 sets, daily range): BP systolic 97–124; BP diastolic 49–78; PULSE 80–97; TEMP 97.6–98.1; O2SAT 86–98
[2023-10-28 02:12] LABS: COLLECTION METHOD CLEAN CATCH
[2023-10-28 02:31] LABS: URINE APPEARANCE CLEAR (CLEAR/HAZY); URINE BLOOD NEGATIVE (NEGATIVE); URINE COLOR YELLOW (YELLOW); URINE GLUCOSE 3+ (NEGATIVE); URINE KETONE NEGATIVE (NEGATIVE); URINE NITRATE NEGATIVE (NEGATIVE); URINE PROTEIN(semi-quant) NEGATIVE (NEGATIVE); URINE UROBILINOGEN 0.2 E.U/dL (0.2-1.0)
[2023-10-28] MEDS ORDERED: Menthol Cough/Sore Throat LOZENGE MM PRN (03:00)
[2023-10-28] MEDS ORDERED: TYLENOL 500MG500 MG PO (08:35)
[2023-10-28] MEDS ORDERED: ROBITUSSIN100 MG/5 M PO (08:43)
[2023-10-28] MEDS ORDERED: TESSALON P100 MG/CAP PO (08:47)
[2023-10-28] MEDS ORDERED: ZOFRAN 4MG T4 MG/TAB PO (08:49)
--- NOTE | 2023-10-28 08:54 | NUR ---
RECEIVED REPORT FROM NIGHTSHIFT RNDON. PATIENT RESTING IN BED WITH EYES CLOSED AT THIS TIME. BED IN A LOW POSITION. CALL LIGHT WITHIN REACH.
--- NOTE | 2023-10-28 09:12 | NUR ---
HEAD TO TOE ASSESSMENT COMPLETED. PATIENT IS ALERT AND ORIENTED. PUPILS EQUAL AND REACTIVE. HEART SOUNDS REGULAR WITH S1 AND S2 NOTED. LUNG SOUNDS CLEAR BILATERALLY. BOWEL SOUNDS ACTIVE X4. PATIENT ABLE TO UTILIZE BEDSIDE COMMODE WITH 1X ASSIST. PATIENT REPORTS NO PAIN THIS MORNING. PULSES PRESENT BILATERALLY IN UPPER AND LOWER EXTREMITIES. 2+ EDEMA NOTED TO BILATERAL LOWER EXTREMITIES. PATIENT ASSISTED INTO RECLINER AT THIS TIME PER PATIENT'S REQUEST. PATIENT NPO STATUS. MEDICATIONS ADMINISTERED PER EMAR. CALL LIGHT WITHIN REACH OF PATIENT.
--- NOTE | 2023-10-28 09:20 | NUR ---
shortage worker met with patient to discuss discharge planning. Pt reports she lives at [facility]. She states she sees Dr. Camejo and obtains medications from [facility] with no difficulties. She confirms her DPOA-HC as her grand-daughter, Nona [phone]. SAYRA verfied this on file. Pt reports to be independent with ADLs and uses a FWW or cane for DME. SAYRA informed GISSEL Childs to order PT/OT to assess pt. SAYRA faxed updates to [facility]. Discharge Plan: return to [place]
[2023-10-28] MEDS ORDERED: Amiodarone 200 MG TAB PO SCH (10:00)
--- NOTE | 2023-10-28 11:41 | NUR ---
wharf worker received a conslt for patient needing information on a lift chair/recliner. SW called [facility] and [facility] who both do not have these. SAYRA called [facility] to inquire about the cost. They report this will be $1,200 and go up from there. They do not deliever to [place]. SAYRA spoke with Daylin at [facility] to inform her of this request. She reports pt has an advantage plan for insurance so it will likely be a process that will take a moment to be approved. She was open to the information and states she will work on this. SAYRA attempted to call pt and inform her, but no answer.
[2023-10-28] MEDS ORDERED: Insulin Lispro (HumaLOG) SQ SCH (12:00)
--- NOTE | 2023-10-28 14:11 | NUR ---
REPORT CALLED TO YAIR DIRECTOR OF FOOD AND BEVERAGE SERVICES. PATIENT TRANSFERRING TO ROOM 322.
--- NOTE | 2023-10-28 14:38 | NUR ---
PATIENT TRANSFERRED TO ROOM 322 VIA WHEELCHAIR. ALL BELONGINGS TAKEN WITH. PATIENT OFF UNIT AT 1322.
[2023-10-28] MEDS ORDERED: Glucagon 1 MG VIAL IM PRN (14:45)
[2023-10-28] MEDS ORDERED: Dextrose (Glucose) 15 GM (4 x 3.75 GM) Chewable TABLET PACK PO PRN (14:45)
[2023-10-28] MEDS ORDERED: Dextrose 50% Water 25 GM/50 ML SYRINGE IV PRN (14:45)
--- NOTE | 2023-10-28 16:00 | NUR ---
Patient received from ICU. Up to the bathroom, unsteady gait back to bed. 2 assist. IVf as ordered. Will monitor
--- NOTE | 2023-10-28 18:40 | NUR ---
Patient up to the bathroom with walker and gaitbelt. Patient frustrated with being a high fall risk and we reviewed patient safety. Patient did well with dinner. Will report off to nightnurse
--- NOTE | 2023-10-28 19:20 | NUR ---
report received from ben gentile. pt sitting in recliner. pt assisted back to bed utilizing gait belt and walker. pt now resting in bed. pt denies pain. fall precautions in place. call light in reach. all needs met at this time.
--- NOTE | 2023-10-28 20:42 | NUR ---
shift assessment complete, see documentation. pt continues to deny pain. pt assisted to bathroom with steady gait. fall precautions in place. call light in reach. all needs met at this time.
[2023-10-29] VITALS (8 sets, daily range): BP systolic 103–124; BP diastolic 48–70; PULSE 65–88; TEMP 97.6–97.9
[2023-10-29 07:16] LABS: CREATININE, serum 1.23 mg/dL (0.57-1.11); POTASSIUM 4.3 mEq/L (3.5-4.5)
--- NOTE | 2023-10-29 09:30 | NUR ---
PT RESTING IN BED WITH NO PAIN AND WEAK GAIT TO CHAIR. BLE DRY AND CRACKING. PT REQUESTING TO SHOWER AT THIS TIME, WILL CONTINUE TO MONITOR.
[2023-10-29] MEDS ORDERED: TOPROL XL 25MG25 MG PO (11:09)
[2023-10-29] MEDS ORDERED: PACERONE200 MG PO (11:09)
--- NOTE | 2023-10-29 12:51 | NUR ---
DISCHARGE INSTRUCTIONS PROVIDED. DISCUSSED FOLLOW UP APPOINTMENTS, NEW MEDICATIONS, AND REASONS TO ALERT THE CRYSTAL GROWING TECHNICIAN. NO QUESTIONS AT THIS TIME. IV AND TELLE REMOVED. PT AND BELONGINGS ESCORTED OUT OF BUILDING AT THIS TIME.
[2023-10-29] MEDS ORDERED: ASPIRIN 81M81 MG/TA2 PO (12:57)
--- NOTE | 2023-10-29 14:22 | NUR ---
SAYRA reviewed PT/OT notes stating return to ID. computer networker faxed clinical updates to [facility]. SAYRA was notified by nursing that patient was discharged and picked up by patient's daughter. SAYRA contacted [facility] and explained she was informed patient discharged and family picked her up. [facility] was not notified of patient being ready for discharge. SAYRA handed the phone to patient's nurse to provide report to [facility]. SAYRA faxed discharge orders to [facility]. Discharge plan: Return to [facility]
== END 2023-10-29 12:52 | disposition home or self-care (01) | DRG 309 ==
LOC: COL.ER 10:49 → ICU 11:35 → SURG 10-28 14:54
PROVIDERS: Emergency Medicine; ADMIT Internal Medicine
DX: I47.20 Ventricular tachycardia, unspecified (principal); I13.0 Hypertensive heart and chronic kidney disease with heart failure and stage 1 through stage 4 chronic kidney disease, or unspecified chronic kidney disease; I50.22 Chronic systolic (congestive) heart failure; I42.9 Cardiomyopathy, unspecified; Z68.41 Body mass index [BMI] 40.0-44.9, adult; E66.01 Morbid (severe) obesity due to excess calories; E78.5 Hyperlipidemia, unspecified; E87.5 Hyperkalemia; N28.9 Disorder of kidney and ureter, unspecified; I25.10 Atherosclerotic heart disease of native coronary artery without angina pectoris; E11.9 Type 2 diabetes mellitus without complications; E86.9 Volume depletion, unspecified; T50.2X5A Adverse effect of carbonic-anhydrase inhibitors, benzothiadiazides and other diuretics, initial encounter; H26.9 Unspecified cataract; G14 Postpolio syndrome; Z85.3 Personal history of malignant neoplasm of breast; Z86.73 Personal history of transient ischemic attack (TIA), and cerebral infarction without residual deficits; Z95.810 Presence of automatic (implantable) cardiac defibrillator; Z91.013 Allergy to seafood; Z79.899 Other long term (current) drug therapy; Z79.01 Long term (current) use of anticoagulants; Z23 Encounter for immunization
CPT/HCPCS: A9270; J0282; J1644; J7030; J7060

== ENCOUNTER 2024-04-15 10:57 | Day surgery (SDC) | payer MEDICARE, MEDICAID ==
[~2024-04-15] VITALS: Ht 149.9 cm; Wt 107.3 kg
[2024-04-15] VITALS (14 sets, daily range): BP systolic 109–169; BP diastolic 62–98; PULSE 68–84; TEMP 97.8
[~2024-04-15 10:57] MED LIST changes: +ALBUTEROL1.25 MG/3 IH; +ASPIRIN 81M81 MG/TA2 PO; +CALCIUM ANTACI500 MG PO; +LOPRESSOR 225 MG/TAB PO; +NYSTATIN100000 U/1 TOP; +PACERONE200 MG PO; +ROBITUSSIN100 MG/5 M PO; +TYLENOL 500MG500 MG PO; +VOLTAREN GEL 1%1 TU TP; +ZOFRAN 4MG T4 MG/TAB PO
[2024-04-15] MEDS ORDERED: 1/2 NS 1,000 ML IV SCH (11:15)
[2024-04-15 11:48] LABS: HEMATOCRIT 42.9 % (37.0-47.0); HEMOGLOBIN 14.5 g/dl (12.5-16.0); MEAN CELL VOLUME 83 fl (80.0-100.0); MEAN CORPUSCULAR HEMOGLOBIN 28 pg (27-31); MEAN CORPUSCULAR HGB CONC 34 g/dl (33.0-37.0); MEAN PLATELET VOLUME 9.8 fl (7.4-10.4); PLATELET COUNT 202 K/mm3 (130-400); RED BLOOD COUNT 5.17 M/mm3 (4.10-5.30); REDCELL DISTRIBUTION WIDTH-CV 15.4 % (11.5-14.5)
[2024-04-15 12:12] LABS: INR 1.1 (0.8-3.0); PROTHROMBIN TIME 12.4 SECONDS (9.7-12.8)
[2024-04-15 12:14] LABS: PARTIAL THROMBOPLASTIN TIME 31.9 SECONDS (26.0-37.0)
[2024-04-15 12:22] LABS: CALCIUM 10.2 mg/dL (8.4-10.2); CREATININE, serum 1.64 mg/dL (0.57-1.11); POTASSIUM 4.8 mEq/L (3.5-4.5)
[2024-04-15] MEDS ORDERED: ZYLOPRIM 100MG100 MG PO (12:41)
[2024-04-15] MEDS ORDERED: PACERONE200 MG PO (12:42)
[2024-04-15] MEDS ORDERED: ERGOCALCIFER50000 IU PO (12:44)
[2024-04-15] MEDS ORDERED: TIROSINT50 MC1 PO (12:46)
[2024-04-15] MEDS ORDERED: LEADER CLE17 GM/Dose PO (12:47)
[2024-04-15] MEDS ORDERED: SENNA-LAX8.6 MG PO (12:48)
--- NOTE | 2024-04-15 13:24 | NUR ---
SEE MERGE FOR PROCEDURE DOCUMENTATION
[2024-04-15] MEDS ORDERED: Iohexol 350 - 100 ML VIAL IV ONE (13:55)
--- NOTE | 2024-04-15 15:14 | NUR ---
Alma was transferred back to express unit Rm 11 after cardiomems insertion by Dr. Boyd. After hooking Alma up for post procedur vitals, assisting pt with bedpan and repositioning her in bed, blood was noted under safeguard dressing. Safeguard dressing removed, and manual pressure held to rt groin for 20 minutes, then redressed with sterile gauze and tegaderm. BS report and handoff of care to Angie CHAUHAN.
--- NOTE | 2024-04-15 19:06 | NUR ---
Pt brought to [facility] by wheelchair accompanied by lola. Pt was scheduled for a cardiomems. EKG done. IV started, labs drawn. Consent for the procedure was signed. The pt was taken to laborer brush clearing for the procedure. Post procedure the pt came back to [facility]. Helped get the pt off the bedpan and cleaned up. The groin site was assessed, some bleeding noted. GISSEL Marquez from [facility] held pressure on the site and applied a sterile dressing. Once the pt was settled offered the pt something to eat and drink. The pt accepted some juice and a meal was later ordered. Coy discussed cardiomem education with the pt and called Tony at the pts living facility to discuss education with them as well. The pt was bedrest for 4 hours. The groin site was assessed throughout the bedrest recovery. The site remained clean, dry, and intact. Once the bedrest time was up the pt got up and used the restroom. The site was again assessed after the pt got up and moved around. The site remained clean, dry and intact. Discharge education and information discussed with the pt. The pt had no questions at the time. IV dc'd and wrapped with coban. The pt exited the unit by wheelchair [facility]
== END 2024-04-15 18:54 | disposition home or self-care (01) ==
LOC: COL.CAR 10:57
PROVIDERS: Internal Medicine Interventional Cardiology
DX: I11.0 Hypertensive heart disease with heart failure (principal); I50.20 Unspecified systolic (congestive) heart failure; Z95.810 Presence of automatic (implantable) cardiac defibrillator; Z79.82 Long term (current) use of aspirin; Z79.02 Long term (current) use of antithrombotics/antiplatelets; Z86.73 Personal history of transient ischemic attack (TIA), and cerebral infarction without residual deficits
CPT/HCPCS: C1769; C2624; Q9967